=== PATIENT | female | born 1995 | race Caucasian/White ===

== ENCOUNTER 2020-08-31 12:42 | Emergency (ER) | payer OTHER ==
[2020-08-31 13:57] LABS: Urine Blood Negative (Negative); Urine Glucose Negative (Negative); Urine Protein Negative (Negative); Urine Specific Gravity 1.025 (1.005-1.030)
[2020-08-31 14:04] LABS: Absolute Lymphocytes (CBC) 2.2 K/uL (0.7-4.9); Basophils % 0.5 % (0-1.3); Hematocrit 38.4 % (36.0-45.0); Lymphocytes % 23.8 % (15.3-44.8); MPV 7.7 fL (7.6-11.3); RBC Red Blood Cell Count 4.35 M/uL (3.86-4.86)
[2020-08-31] MEDS ORDERED: Ringers Lactate 1,000 ML IV ONE (14:09)
[2020-08-31 14:13] LABS: BUN Blood Urea Nitrogen 7 mg/dL (7-18); Bicarbonate 27 mmol/L (21-32); Glucose Level 50 mg/dL (74-106); Potassium 3.7 mmol/L (3.5-5.1); Sodium Level 138 mmol/L (136-145)
[2020-08-31] MEDS ORDERED: D50W 25 GM/50 ML SYRINGE IV ONE (14:37)
[2020-08-31 14:56] LABS: Urine Specific Gravity/Preg 1.025 (1.005-1.030)
--- NOTE | 2020-08-31 15:56 | ER ---
Nurse's Notes [facility] Name: Gina Henry Age: 25 yrs Sex: Female : 1995 Arrival Date: 08/31/2020 Time: 12:51 Bed 20 Private MD: Diagnosis: Hypoglycemia, unspecified Presentation: 08/31 12:58 Chief complaint: Patient states: Headache, dizziness, lightheaded since this morning. ca1 17 weeks. Coronavirus screen: Client denies travel out of the [place] in the last 14 days. headache, Client presents with at least one sign or symptom that may indicate coronavirus-19. Standard/surgical mask placed on the client. Provider contacted for isolation considerations. Ebola Screen: Patient negative for fever greater than or equal to 101.5 degrees Fahrenheit, and additional compatible Ebola Virus Disease symptoms Patient denies exposure to infectious person. Patient denies travel to an Ebola-affected area in the 21 days before illness onset. No symptoms or risks identified at this time. Initial Sepsis Screen: Does the patient meet any 2 criteria? No. Patient's initial sepsis screen is negative. Does the patient have a suspected source of infection? No. Patient's initial sepsis screen is negative. Risk Assessment: Do you want to hurt yourself or someone else? Patient reports no desire to harm self or others. Onset of symptoms was August 31, 2020. 12:58 Method Of Arrival: Ambulatory ca1 12:58 Acuity: PHILL 3 ca1 Triage Assessment: 13:03 Headache History: The patient has had previous headaches and this one is similar to rb3 previous episodes. 13:03 Pain: Complains of pain in headache Pain currently is 5 out of 10 on a pain scale. Also rb3 complains of dizziness. 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 Flu vaccine is not up to date. - Social history:: Smoking status: Patient denies any tobacco usage or history of. Screenin:03 Abuse screen: Denies threats or abuse. Nutritional screening: No deficits noted. rb3 Tuberculosis screening: No symptoms or risk factors identified. Fall Risk None identified. Assessment: 13:03 General: Appears in no apparent distress. comfortable, Behavior is calm, cooperative, rb3 Denies fever. Neuro: Level of Consciousness is awake, alert, obeys commands, Oriented to person, place, time, situation, Reports dizziness, headache lightheaded. Cardiovascular: Patient's skin is warm and dry. Respiratory: Airway is patent Respiratory effort is even, unlabored, Respiratory pattern is regular, symmetrical. GI: No signs and/or symptoms were reported involving the gastrointestinal system. : No signs and/or symptoms were reported regarding the genitourinary system. 14:00 Reassessment: Patient appears in no apparent distress at this time. No changes from rb3 previously documented assessment. pt ambulated to the restroom without difficulty. 15:00 Reassessment: Patient appears in no apparent distress at this time. Patient and/or rb3 family updated on plan of care and expected duration. Pain level reassessed. Patient is alert, oriented x 3, equal unlabored respirations, skin warm/dry/pink. 15:16 Reassessment: BS is 68, after administering half an amp of Dextrose, and the pt eating rb3 a few bites of the her hospital tray of breakfast food. I gave the pt a ham and cheese sandwich, cranberry juice, and some apple sauce. No new orders received at this time. 16:00 Reassessment: Patient appears in no apparent distress at this time. Patient and/or rb3 family updated on plan of care and expected duration. Pain level reassessed. Patient is alert, oriented x 3, equal unlabored respirations, skin warm/dry/pink. Vital Signs: 12:58 BP 118 / 76; Pulse 65; Resp 16 S; Temp 98.6(O); Pulse Ox 100% on R/A; Weight 81.65 kg ca1 (R); Height 5 ft. 5 in. (165.10 cm) (R); Pain 4/10; 13:48 BP 128 / 72 Supine; Pulse 59; Resp 16; Pulse Ox 100% ; rb3 13:50 BP 129 / 70 Sitting; Pulse 60; Resp 17; Pulse Ox 100% ; rb3 13:52 BP 123 / 74 Standing; Pulse 61; Resp 16; Pulse Ox 98% ; rb3 14:19 BP 108 / 45; Pulse 59; Resp 16; Pulse Ox 100% on R/A; mh5 15:19 BP 122 / 78; Pulse 68; Resp 17; Pulse Ox 100% ; rb3 16:11 BP 108 / 76; Pulse 68; Resp 16; Pulse Ox 98% ; rb3 12:58 Body Mass Index 29.95 (81.65 kg, 165.10 cm) ca1 ED Course: 12:51 Patient arrived in ED. bp1 12:59 Triage completed. ca1 12:59 Arm band placed on right wrist. ca1 13:01 Nicko Saba PA is PHCP. jr8 13:01 Wai Castro MD is Attending Physician. jr8 13:03 Patient has correct armband on for positive identification. Bed in low position. Call rb3 light in reach. Side rails up X 1. Pulse ox on. NIBP on. Warm blanket given. 13:06 Rebecca Okeefe, RN is Primary Nurse. rb3 13:38 Missed attempt(s): 20 gauge in left antecubital area. Bleeding controlled, band aid rb3 applied, catheter tip intact. 13:42 Inserted saline lock: 22 gauge in right antecubital area, using aseptic technique. rb3 Blood collected. 14:18 Urine --Ancillary Sent. mh5 14:18 Urine --Ancillary (enter results) Sent. mh5 14:18 Initial lab(s) drawn, by ED staff, sent to lab. Urine collected: clean catch specimen, mh5 clear. 15:55 Vinnie Mccurdy MD is Referral Physician. jr8 16:12 No provider procedures requiring assistance completed. IV discontinued, intact, rb3 bleeding controlled, No redness/swelling at site. Pressure dressing applied. Administered Medications: 13:53 Drug: Ringers - Lactated Ringers Solution 1000 ml Route: IV; Rate: bolus; Site: right rb3 antecubital; 15:00 Follow up: IV Status: Completed infusion rb3 14:17 Drug: D50W 25 ml Route: IVP; Site: right antecubital; rb3 15:16 Follow up: Response: No adverse reaction; Blood sugar is elevated rb3 Point of Care Testing: Blood Glucose: 15:16 Blood Glucose: 68 mg/dL; rb3 15:16 Roszak notified. No new orders received at this time. Gave the pt. a ham and cheese rb3 sarndwich, cranberry juice, and applesauce to eat. Ranges: Output: 13:38 Urine: 1ml (Voided); Total: 1ml. rb3 14:00 Urine: 1ml (Voided); Total: 2ml. rb3 Outcome: 15:55 Discharge ordered by . ned 16:12 Discharged to home ambulatory, with significant other. rb3 16:12 Condition: stable 16:12 Discharge instructions given to patient, Instructed on discharge instructions, follow up and referral plans. Demonstrated understanding of instructions, follow-up care, Prescriptions given X none 16:13 Patient left the ED. rb3 Signatures: Nicko Saba PA PA jr8 Paulina Duong [facility] Fadumo Noonan, RN RN ca1 Mony Zepeda Rebecca, RN RN rb3 Corrections: (The following items were deleted from the chart) 13:00 12:59 Allergies: PENICILLINS; ca1 ca1 13:01 12:59 1, LMP 05/06/2020 ca1 ca1
--- NOTE | 2020-08-31 15:56 | EDPHYS ---
Physician Documentation [facility] Name: Gina Henry Age: 25 yrs Sex: Female : 1995 Arrival Date: 08/31/2020 Time: 12:51 Bed 20 Private MD: ED Physician Wai Castro HPI: 08/31 14:53 This 25 yrs old Female presents to ER via Ambulatory with complaints of Dizziness, jr8 +PREG 17 WEEKS. 14:53 Patient stated that she is approximately 17 weeks gestation. No care as of jr8 yet. Started to feel fatigued and dizzy. On/off nausea without vomiting or diarrhea. Stated that she has been working a lot and not drinking as much water as she needs to. Severity of symptoms: At their worst the symptoms were mild in the emergency department the symptoms are unchanged. The patient has not experienced similar symptoms in the past. The patient has not recently seen a physician. 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 Flu vaccine is not up to date. - Social history:: Smoking status: Patient denies any tobacco usage or history of. ROS: 14:53 Constitutional: Negative for fever, chills, and weight loss, Abdomen/GI: Negative for jr8 abdominal pain, nausea, vomiting, diarrhea, and constipation, : Negative for injury, bleeding, discharge, and swelling. 14:53 Constitutional: Positive for fatigue. 14:53 Neuro: Positive for dizziness, Negative for gait disturbance, headache, numbness, tingling, visual changes, weakness. 14:53 All other systems are negative. Exam: 14:53 Constitutional: This is a well developed, well nourished patient who is awake, alert, jr8 and in no acute distress. Eyes: Pupils equal round and reactive to light, extra-ocular motions intact. Lids and lashes normal. Conjunctiva and sclera are non-icteric and not injected. Cornea within normal limits. Periorbital areas with no swelling, redness, or edema. ENT: Nares patent. No nasal discharge, no septal abnormalities noted. Tympanic membranes are normal and external auditory canals are clear. Oropharynx with no redness, swelling, or masses, exudates, or evidence of obstruction, uvula midline. Mucous membranes moist. Neck: Trachea midline, no thyromegaly or masses palpated, and no cervical lymphadenopathy. Supple, full range of motion without nuchal rigidity, or vertebral point tenderness. No Meningismus. Cardiovascular: Regular rate and rhythm with a normal S1 and S2. No gallops, murmurs, or rubs. Normal PMI, no JVD. No pulse deficits. Respiratory: Lungs have equal breath sounds bilaterally, clear to auscultation and percussion. No rales, rhonchi or wheezes noted. No increased work of breathing, no retractions or nasal flaring. Abdomen/GI: Soft, non-tender, with normal bowel sounds. No distension or tympany. No guarding or rebound. No evidence of tenderness throughout. Back: No spinal tenderness. No costovertebral tenderness. Full range of motion. Skin: Warm, dry with normal turgor. Normal color with no rashes, no lesions, and no evidence of cellulitis. MS/ Extremity: Pulses equal, no cyanosis. Neurovascular intact. Full, normal range of motion. Neuro: Awake and alert, GCS 15, oriented to person, place, time, and situation. Cranial nerves II-XII grossly intact. Motor strength 5/5 in all extremities. Sensory grossly intact. Cerebellar exam normal. Normal gait. Vital Signs: 12:58 BP 118 / 76; Pulse 65; Resp 16 S; Temp 98.6(O); Pulse Ox 100% on R/A; Weight 81.65 kg ca1 (R); Height 5 ft. 5 in. (165.10 cm) (R); Pain 4/10; 13:48 BP 128 / 72 Supine; Pulse 59; Resp 16; Pulse Ox 100% ; rb3 13:50 BP 129 / 70 Sitting; Pulse 60; Resp 17; Pulse Ox 100% ; rb3 13:52 BP 123 / 74 Standing; Pulse 61; Resp 16; Pulse Ox 98% ; rb3 14:19 BP 108 / 45; Pulse 59; Resp 16; Pulse Ox 100% on R/A; mh5 15:19 BP 122 / 78; Pulse 68; Resp 17; Pulse Ox 100% ; rb3 16:11 BP 108 / 76; Pulse 68; Resp 16; Pulse Ox 98% ; rb3 12:58 Body Mass Index 29.95 (81.65 kg, 165.10 cm) ca1 MDM: 13:02 Patient medically screened. jr8 15:53 Data reviewed: vital signs, nurses notes, lab test result(s), and as a result, I will jr8 discharge patient. Data interpreted: Pulse oximetry: on room air is 100 %. Interpretation: normal. Counseling: I had a detailed discussion with the patient and/or guardian regarding: the historical points, exam findings, and any diagnostic results supporting the discharge/admit diagnosis, lab results, the need for outpatient follow up, an OB/Gyne specialist, to return to the emergency department if symptoms worsen or persist or if there are any questions or concerns that arise at home. ED course: Patient feeling much better. Has had similar episodes in past even when not . Counseled her on the need to f/u and establish a relationship with an OB of her choice. That hypoglycemia in is not good for her or fetus. Patient understood and would reach out to one immediately. Also told her to go get a glucometer in the meantime which she agreed with as well. Knows to come back if worse . 08/31 13:21 Order name: CBC with Diff; Complete Time: 14:14 [facility] 08/31 13:21 Order name: Basic Metabolic Panel; Complete Time: 14:14 [facility] 08/31 13:56 Order name: Urine Dipstick-Ancillary; Complete Time: 14:01 [facility] 08/31 14:08 Order name: Urine --Ancillary (enter results) em1 08/31 14:09 Order name: Urine --Ancillary; Complete Time: 15:04 [facility] 08/31 15:34 Order name: Glucose, Ancillary Testing; Complete Time: 15:35 [facility] 08/31 13:21 Order name: IV; Complete Time: 13:56 [facility] 08/31 13:21 Order name: Urine Dipstick-Ancillary (obtain specimen); Complete Time: 13:55 [facility] 08/31 13:21 Order name: Urine Test (obtain specimen); Complete Time: 13:56 [facility] 08/31 13:22 Order name: Orthostatics; Complete Time: 13:55 [facility] 08/31 14:16 Order name: Diet Regular; Complete Time: 14:16 jr8 Administered Medications: 13:53 Drug: Ringers - Lactated Ringers Solution 1000 ml Route: IV; Rate: bolus; Site: right rb3 antecubital; 15:00 Follow up: IV Status: Completed infusion rb3 14:17 Drug: D50W 25 ml Route: IVP; Site: right antecubital; rb3 15:16 Follow up: Response: No adverse reaction; Blood sugar is elevated rb3 Point of Care Testing: Blood Glucose: 15:16 Blood Glucose: 68 mg/dL; rb3 15:16 Deborahzak notified. No new orders received at this time. Gave the pt. a ham and cheese rb3 sarndwich, cranberry juice, and applesauce to eat. Ranges: Critical Glucose Levels:Adult <50 mg/dl or >400 mg/dl <40 mg/dl or >180 mg/dl Disposition: 09/01 07:19 Co-signature as Attending Physician, Wai Castro MD I agree with the assessment and tw4 plan of care. Disposition Summary: 08/31/20 15:55 Discharge Ordered Location: Home jr8 Problem: new jr8 Symptoms: have improved jr8 Condition: Stable jr8 Diagnosis - Hypoglycemia, unspecified jr8 Followup: jr8 - With: Vinnie Mccurdy MD - When: 2 - 3 days - Reason: Recheck today's complaints, Continuance of care, Re-evaluation by your physician Discharge Instructions: - Discharge Summary Sheet jr8 - Hypoglycemia jr8 - Blood Glucose Monitoring, Adult jr8 Forms: - Medication Reconciliation Form jr8 - Thank You Letter jr8 - Antibiotic Education jr8 - Prescription Opioid Use jr8 Signatures: Dispatcher [employer] EDMS Nicko Saba PA PA jr8 Wai Castro MD MD tw4 Fadumo Noonan RN RN ca1 Rebecca Okeefe RN RN rb3 Corrections: (The following items were deleted from the chart) 08/31 13:00 12:59 Allergies: PENICILLINS; ca1 ca1
[2020-08-31 16:23] VITALS: TEMP 98.6
[2020-08-31 16:31] VITALS: BP 108/76; O2SAT 98
== END 2020-08-31 16:13 | disposition home or self-care (01) ==
LOC: ER 12:42
DX: O99.282 Endocrine, nutritional and metabolic diseases complicating pregnancy, second trimester (principal); E16.2 Hypoglycemia, unspecified; Z3A.17 17 weeks gestation of pregnancy; Z88.4 Allergy status to anesthetic agent
CPT/HCPCS: 96365; 85025; 80048; 36415; 81025; 82947 ×2; 81003; 96375; 99284; J7120

== ENCOUNTER 2020-10-12 16:50 | Emergency (ER) | payer OTHER ==
--- NOTE | 2020-10-12 19:10 | RAD REPORT ---
EXAM DESCRIPTION: US - Abdomen Exam Limited - 10/12/2020 6:46 pm CLINICAL HISTORY: Abdominal pain. COMPARISON: None. FINDINGS: Limited examination was performed to assess for ascites. No ascites is visualized. . IMPRESSION: No ascites is visualized. This does not exclude an intraabdominal injury
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
[2020-10-12 20:58] VITALS: TEMP 98.1; O2SAT 100
[2020-10-12 20:59] VITALS: BP 117/69
== END 2020-10-12 20:53 | disposition home or self-care (01) ==
LOC: ER 16:50
DX: O26.892 Other specified pregnancy related conditions, second trimester (principal); V49.40XA Driver injured in collision with unspecified motor vehicles in traffic accident, initial encounter; Z88.4 Allergy status to anesthetic agent; Z3A.23 23 weeks gestation of pregnancy
CPT/HCPCS: 76705; 76815; 99283

== ENCOUNTER 2023-12-13 11:31 | Emergency (ER) | payer OTHER ==
--- OUTSIDE RECORDS SUMMARY | 2023-12-13 11:35 | XMS REPORT | Continuity of Care Document ---
Author Name Unknown Address [address] [facility] [address] [place] [address] [facility] Address [address] [place] [address] Care Team Providers Care Zoo Veterinarian Name Role Phone Luz Macias MD Primary Care Physician + JUANITA BROUSSARD Attending Clinician Unavailable THERESA NDIAYE Attending Clinician THERESA Guzmán Attending Clinician LUZ Rivera Attending Clinician Unavailable Theresa Ndiaye MD Attending Clinician + [phone] Doctor Unassigned, [place] Attending Clinician U Luz Stock MD Attending Clinician + 2, [facility] Attending Clinician Unavailable Gina Nelson Attending Clinician + Luz Macias MD Attending Clinician + RODOLFO HODGES Attending Clinician Unavailable CARMEN GUERRERO Attending Clinician CARMEN Gonzalez Attending Clinician Unavailtre holland Doctor Unassigned, [place] Attending Clinician U cristiano 2, [facility] Attending Clinician Unavailable GINA GALE Attending Clinician Unavailable Maria Eugenia Nelson LMSW Attending Clinician Rodolfo Whitehead MD Attending Clinician [phone] Edilson BOAT WASHER, Florencia L Attending Clinician Cindy HART Gina Sue Attending Clinician Unavailab le Lab, Ang - Db Attending Clinician Unavailable Juanita Broussard MD Attending Clinician [phone] Lexus ALFREDO Attending Clinician Unavailable Lexus Patel Attending Clinician [phone] Nurse, [facility] Attending Clinician Un available Yair Pedro MD Attending Clinician [phone] Julienne Perla DO Attending Clinician [phone] JUANITA BROUSSARD Admitting Clinician Unavailable Lexus ALFREDO Admitting Clinician Unavailable Juanita Broussard MD Admitting Clinician [phone] Payers Payer Name Policy Type Policy Number Effective Date Expirati on Date Source [facility] [id number] 2021 00:00:00 Problems Condition Name Condition Details Condition Category Status Onset Date Resolution Date Last Treatment Date Treating Clinician Comments Source Sexual behavior with high risk of exposure to communicab le disease Sexual behavior with high risk of exposure to communicab le disease Disease Active 10-19 00:00: 00 [facility] Other iron deficiency anemia Other iron deficiency anemia Disease Active 10-19 00:00: 00 [facility] Recurrent genital HSV (herpes simplex virus) infection Recurrent genital HSV (herpes simplex virus) infection Disease Active 2022-02 00:00: 00 [facility] Financial difficulty Financial difficulty Disease Active 2022-02 00:00: 00 [facility] Does not have health insurance Does not have health insurance Disease Active 2022-02 00:00: 00 [facility] Other social stressor Other social stressor Disease Active 09-29 00:00: 00 [facility] Other social stressor Other social stressor Disease Active 09-29 00:00: 00 [facility] Primary insomnia Primary insomnia Disease Active 09-29 00:00: 00 [facility] Vaginal discharge Vaginal discharge Disease Active - 00:00: 00 [facility] Possible exposure to STD Possible exposure to STD Disease Active 5- 00:00: 00 [facility] Essential hypertensi on Essential hypertensi on Disease Active 8-12 00:00: 00 [facility] BMI 40.0-44.9, adult BMI 40.0-44.9, adult Disease Active 8-12 00:00: 00 [facility] Binge-eati ng disorder, extreme Binge-eati ng disorder, extreme Disease Active 8-12 00:00: 00 [facility] 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 Disease Active 8-12 00:00: 00 [facility] Anxiety Anxiety Disease Active 8 00:00: 00 [facility] Screening examinatio n for venereal disease Screening examinatio n for venereal disease Disease Active 8- 00:00: 00 [facility] PTSD (post-trau matic stress disorder) PTSD (post-trau matic stress disorder) Disease Active 812 00:00: 00 [facility] Marijuana use, episodic Marijuana use, episodic Disease Active 812 00:00: 00 [facility] Screening for viral disease Screening for viral disease Disease Active 812 00:00: 00 [facility] Obesity (BMI 30-39.9) Obesity (BMI 30-39.9) Disease Active 2020-02 2- 00:00: 00 [facility] Positive urine drug screen Positive urine drug screen Disease Active 2020-02 2- 00:00: 00 [facility] Term Term Disease Resolve d 2020-02 2- 00:00: 00 2022-08-28 00:00:00 2022-08-28 14:25:57 [facility] Gestationa l hypertensi on, third trimester Gestationa l hypertensi on, third trimester Disease Resolve d 2020-02 2-26 00:00: 00 2022-08-28 00:00:00 2022-08-28 14:26:00 [facility] Single liveborn, born in hospital, delivered by vaginal delivery Single liveborn, born in hospital, delivered by vaginal delivery Disease Resolve d 2020-02 2-27 00:00: 00 2021-03-21 00:00:00 2021-03-21 11:36:26 [facility] Uterine contractio ns Uterine contractio ns Disease Resolve d 2020-02 2- 00:00: 00 2021-03-21 00:00:00 2021-03-21 11:36:26 [facility] Insufficie nt care in third trimester Insufficie nt care in third trimester Disease Resolve d 2020-02 2- 00:00: 00 2021-03-21 00:00:00 2021-03-21 11:36:26 [facility] Pre-eclamp annette in third trimester Pre-eclamp annette in third trimester Disease Resolve d 2020-02 2- 00:00: 00 2021-03-21 00:00:00 2021-03-21 11:36:26 [facility] Allergies, Adverse Reactions, Alerts Allergy Name Allergy Type Status Severity Reaction(s) Onset Date Inactive Date Treating Clinician Comments Source NO KNOWN ALLERGIE S Drug Class Active [facility] Social History Social Habit Start Date Stop Date Quantity Comments Source ASSERTION 2023-10-28 00:00:00 [facility] History SDOH Alcohol Frequency [facility] History SDOH Alcohol Std Drinks [facility] History SDOH Alcohol Binge [facility] History of tobacco use Current smoker [facility] Gender identity [facility] Alcoholic beverage intake 2023-12-02 00:00:00 2023-12-02 00:00:00 Current drinker of alcohol (finding) [facility] History of Social function 2023-10-20 00:00:00 2023-10-20 00:00:00 [facility] Alcohol intake 2023-03-26 00:00:00 2023-03-26 00:00:00 Current drinker of alcohol (finding) [facility] Exposure to SARS-CoV-2 (event) 2022-05-31 00:00:00 2022-06-10 10:02:00 Not sure [facility] Tobacco use and exposure 2021-10-29 00:00:00 2021-10-29 00:00:00 Smokeless tobacco non-user [facility] Alcohol Comment 2021-03-21 00:00:00 2021-03-21 00:00:00 wine [facility] Sex assigned at 1995 00:00:00 1995 00:00:00 [facility] Smoking Status Start Date Stop Date Source Ex-smoker 2021-10-29 00:00:00 2021-10-29 00:00:00 [facility] Medications Ordered Medication Name Filled Medication Name Start Date Stop Date Current Medication? Ordering Clinician Indication Dosage Frequency Signature (SIG) Comments Components Source PNV no.95/jamie us fum/folic ac ( ORAL) 2023-02 08:26: 32 Yes Take by mouth. [facility] ondansetron (ZOFRAN) 4 mg tablet 2023-02 00:00: 00 Yes [id number] 4mg Take 1 tablet by mouth every 8 (eight) hours as needed for Nausea and Vomiting (N/V). [facility] labetaloL 100 mg tablet 11-15 00:00: 00 Yes [id number] 100mg Take 1 tablet by mouth every 12 (twelve) hours. [facility] venlafaxine XR 37.5 mg 24 hr capsule 11-11 00:00: 00 Yes [id number] 37.5mg TAKE 1 CAPSULE BY MOUTH DAILY WITH BREAKFAST. [facility] BUPROPION SR 150 mg SR tablet 11-11 00:00: 00 Yes [id number] 150mg TAKE 1 TABLET BY MOUTH IN THE MORNING AND IN THE EVENING [facility] metformin ER 500 mg 24 hr tablet 10-19 00:00: 00 Yes [id number] 500mg Take 1 tablet by mouth daily with breakfast. [facility] ferrous sulfate 325 mg (65 mg iron) tablet 10-19 00:00: 00 Yes [id number] 325mg Take 1 tablet by mouth in the morning and 1 tablet in the evening. [facility] traZODone 100 mg tablet 10-19 00:00: 00 12-01 00:00 :00 No [id number] 100mg Take 1 tablet by mouth at bedtime. [facility] buPROPion SR (WELLBUTRIN SR) 150 mg SR tablet 10-19 00:00: 00 11-11 00:00 :00 No [id number] 150mg Take 1 tablet by mouth in the morning and 1 tablet in the evening. [facility] venlafaxine XR 37.5 mg 24 hr capsule 10-19 00:00: 00 11-11 00:00 :00 No [id number] 37.5mg Take 1 capsule by mouth daily with breakfast. [facility] VALACYCLOVI R 1 gram tablet 09-05 00:00: 00 Yes [id number] 1g TAKE 1 TABLET BY MOUTH EVERY DAY IN THE MORNING [facility] BUPROPION 75 mg tablet 07-15 00:00: 00 10-19 00:00 :00 No [id number] TAKE 1 TABLET BY MOUTH IN THE MORNING AT NOON AND IN THE EVENING [facility] metformin ER 500 mg 24 hr tablet 07-12 00:00: 00 10-19 00:00 :00 No 500mg Take 1 tablet by mouth daily with breakfast. [facility] buPROPion 75 mg tablet 30 00:00: 00 07-15 00:00 :00 No [id number] 75mg Take 1 tablet by mouth in the morning and 1 tablet at noon and 1 tablet in the evening. [facility] valACYclovi r (VALTREX) 1 gram tablet 03-26 00:00: 00 09-05 00:00 :00 No [id number] 1g Take 1 tablet by mouth in the morning. [facility] metformin ER 500 mg 24 hr tablet 2- 00:00: 00 07-12 00:00 :00 No [id number] 500mg Take 1 tablet by mouth daily with breakfast. [facility] traZODone 100 mg tablet 2022-02- 00:00: 00 10-19 00:00 :00 No [id number] 100mg Take 1 tablet by mouth at bedtime. [facility] buPROPion 75 mg tablet 2022-02 00:00: 00 06-20 00:00 :00 No [id number] 75mg Take 1 tablet by mouth in the morning and 1 tablet at noon and 1 tablet in the evening. [facility] valACYclovi r (VALTREX) 1 gram tablet 2022-02 00:00: 00 03-26 00:00 :00 No [id number] 1g Take 1 tablet by mouth in the morning. [facility] metformin ER 500 mg 24 hr tablet 2022-02 00:00: 00 03-26 00:00 :00 No [id number] 500mg Take 1 tablet by mouth daily with breakfast. [facility] buPROPion 75 mg tablet 09-29 00:00: 00 12-30 00:00 :00 No [id number] 75mg Take 1 tablet by mouth in the morning and 1 tablet at noon and 1 tablet in the evening. [facility] traZODone 50 mg tablet 09-29 00:00: 00 12-30 00:00 :00 No [id number] 50mg Take 1 tablet by mouth at bedtime. [facility] venlafaxine XR 37.5 mg 24 hr capsule 09-09 00:00: 00 09-29 00:00 :00 No [id number] 37.5mg Take 1 capsule by mouth in the morning. [facility] valACYclovi r (VALTREX) 1 gram tablet - 00:00: 00 12-08 00:00 :00 No [id number] 1g Take 1 tablet by mouth in the morning. [facility] valACYclovi r (VALTREX) 1 gram tablet 08-28 00:00: 08-31 00:00 :00 No [id number] 1g Take 1 tablet by mouth in the morning for 5 days. [facility] amLODIPine 10 mg tablet 03-31 00:00: 00 12-30 00:00 :00 No [id number] 5mg Take 0.5 tablets by mouth in the morning. [facility] venlafaxine XR 37.5 mg 24 hr capsule 03-31 00:00: 00 09-09 00:00 :00 No [id number] 37.5mg Take 1 capsule by mouth in the morning. [facility] venlafaxine XR 37.5 mg 24 hr capsule 2021-02 00:00: 00 03-31 00:00 :00 No [id number] 37.5mg Take 1 capsule by mouth in the morning. [facility] Supply Kit 10-29 00:00: 00 Yes [id number] I10 - Dispense blood pressure cuff (any brand), take BP at home BID [facility] Kit 10-29 00:00: 00 Yes [id number] I10 - Dispense blood pressure cuff (any brand), take BP at home BID [facility] VENLAFAXINE XR 37.5 mg 24 hr capsule 10-28 00:00: 00 01-26 00:00 :00 No [id number] TAKE 1 CAPSULE BY MOUTH EVERY DAY [facility] amLODIPine 10 mg tablet - 00:00: 00 03-31 00:00 :00 No [id number] 5mg Take 0.5 tablets by mouth in the morning. [facility] Kit - 00:00: 00 10-29 00:00 :00 No [id number] I10 - Dispense blood pressure cuff (any brand), take BP at home BID [facility] ibuprofen 600 mg tablet 5-24 00:00: 00 03-31 00:00 :00 No [id number] 600mg Take 1 tablet by mouth every 6 (six) hours as needed for Pain (scale 4-6). [facility] vitamin w/FA tablet 2020-02 00:00: 00 Yes [id number] 1{tbl} Take 1 tablet by mouth daily. [facility] vitamin w/FA tablet 2020-02 00:00: 00 10-19 00:00 :00 No [id number] 1{tbl} Take 1 tablet by mouth daily. [facility] ferrous sulfate 325 mg (65 mg iron) tablet 2020-02 00:00: 00 10-19 00:00 :00 No [id number] 325mg Take 1 tablet by mouth 2 (two) times daily. [facility] Immunizations Ordered Immunization Name Filled Immunization Name Date Status Comments Source HPV9 2023-10-20 00:00:00 Completed [facility] Pneumococcal 20 Conjugate, PCV20 (Prevnar 20) 2023-10-20 00:00:00 Completed HPV9 Unknown Completed [facility] Pneumococcal 20 Conjugate, PCV20 (Prevnar 20) Unknown Completed [facility] HPV9 Unknown Completed [facility] Pneumococcal 20 Conjugate, PCV20 (Prevnar 20) Unknown Completed [facility] HPV9 Unknown Completed [facility] Pneumococcal 20 Conjugate, PCV20 (Prevnar 20) Unknown Completed [facility] HPV9 Unknown Completed [facility] Pneumococcal 20 Conjugate, PCV20 (Prevnar 20) Unknown Completed [facility] Vital Signs Vital Name Observation Time Observation Value Comments S ource Systolic blood pressure 2023-12-02 13:23:00 131 mm[Hg] [facility] Diastolic blood pressure 2023-12-02 13:23:00 84 mm[Hg] [facility] Heart rate 2023-12-02 13:23:00 90 /min [facility] Respiratory rate 2023-12-02 13:23:00 18 /min [facility] Body height 2023-12-02 13:23:00 166.4 cm [facility] Body weight 2023-12-02 13:23:00 87.136 kg [facility] BMI 2023-12-02 13:23:00 31.48 kg/m2 [facility] Systolic blood pressure 2023-11-16 13:27:00 147 mm[Hg] [facility] Diastolic blood pressure 2023-11-16 13:27:00 102 mm[Hg] [facility] Heart rate 2023-11-16 13:27:00 108 /min [facility] Body temperature 2023-11-16 13:27:00 36.78 Judy [facility] Body weight 2023-11-16 13:27:00 85.911 kg [facility] BMI 2023-11-16 13:27:00 31.04 kg/m2 [facility] Systolic blood pressure 2023-10-20 18:00:00 114 mm[Hg] [facility] Diastolic blood pressure 2023-10-20 18:00:00 77 mm[Hg] [facility] Heart rate 2023-10-20 18:00:00 88 /min [facility] Body temperature 2023-10-20 18:00:00 36.33 Judy [facility] Respiratory rate 2023-10-20 18:00:00 18 /min [facility] Body height 2023-10-20 18:00:00 166.4 cm [facility] Body weight 2023-10-20 18:00:00 86.274 kg [facility] BMI 2023-10-20 18:00:00 31.17 kg/m2 [facility] Oxygen saturation in Arterial blood by Pulse oximetry 2023-10-20 18:00:00 99 /min [facility] Systolic blood pressure 2023-07-13 14:39:00 123 mm[Hg] [facility] Diastolic blood pressure 2023-07-13 14:39:00 73 mm[Hg] [facility] Heart rate 2023-07-13 14:39:00 76 /min [facility] Body temperature 2023-07-13 14:39:00 36.78 Judy [facility] Respiratory rate 2023-07-13 14:39:00 16 /min [facility] Body height 2023-07-13 14:39:00 165.1 cm [facility] Body weight 2023-07-13 14:39:00 78.064 kg [facility] BMI 2023-07-13 14:39:00 28.64 kg/m2 [facility] Systolic blood pressure 2023-03-26 16:29:00 123 mm[Hg] [facility] Diastolic blood pressure 2023-03-26 16:29:00 69 mm[Hg] [facility] Heart rate 2023-03-26 16:29:00 78 /min [facility] Body temperature 2023-03-26 16:29:00 36.44 Judy [facility] Respiratory rate 2023-03-26 16:29:00 18 /min [facility] Body height 2023-03-26 16:29:00 165.1 cm [facility] Body weight 2023-03-26 16:29:00 83.28 kg [facility] BMI 2023-03-26 16:29:00 30.55 kg/m2 [facility] Oxygen saturation in Arterial blood by Pulse oximetry 2023-03-26 16:29:00 100 /min [facility] Systolic blood pressure 2022-12-30 16:39:00 127 mm[Hg] [facility] Diastolic blood pressure 2022-12-30 16:39:00 83 mm[Hg] [facility] Heart rate 2022-12-30 16:39:00 72 /min [facility] Body temperature 2022-12-30 16:39:00 36.39 Judy [facility] Respiratory rate 2022-12-30 16:39:00 18 /min [facility] Body height 2022-12-30 16:39:00 165.7 cm [facility] Body weight 2022-12-30 16:39:00 86.274 kg [facility] BMI 2022-12-30 16:39:00 31.41 kg/m2 [facility] Oxygen saturation in Arterial blood by Pulse oximetry 2022-12-30 16:39:00 100 /min [facility] Systolic blood pressure 2022-12-08 17:58:00 122 mm[Hg] [facility] Diastolic blood pressure 2022-12-08 17:58:00 80 mm[Hg] [facility] Heart rate 2022-12-08 17:56:00 74 /min [facility] Respiratory rate 2022-12-08 17:56:00 18 /min [facility] Body height 2022-12-08 17:56:00 165.1 cm [facility] Body weight 2022-12-08 17:56:00 87.091 kg [facility] BMI 2022-12-08 17:56:00 31.95 kg/m2 [facility] Systolic blood pressure 2022-09-29 14:00:00 123 mm[Hg] [facility] Diastolic blood pressure 2022-09-29 14:00:00 85 mm[Hg] [facility] Heart rate 2022-09-29 13:59:00 79 /min [facility] Body temperature 2022-09-29 13:59:00 36.28 Judy [facility] Body height 2022-09-29 13:59:00 165.1 cm [facility] Body weight 2022-09-29 13:59:00 89.812 kg [facility] BMI 2022-09-29 13:59:00 32.95 kg/m2 [facility] Oxygen saturation in Arterial blood by Pulse oximetry 2022-09-29 13:59:00 99 /min [facility] Systolic blood pressure 2022-08-28 19:22:00 133 mm[Hg] [facility] Diastolic blood pressure 2022-08-28 19:22:00 82 mm[Hg] [facility] Heart rate 2022-08-28 19:22:00 105 /min [facility] Respiratory rate 2022-08-28 19:22:00 18 /min [facility] Body height 2022-08-28 19:22:00 166.4 cm [facility] Body weight 2022-08-28 19:22:00 92.534 kg [facility] BMI 2022-08-28 19:22:00 33.43 kg/m2 [facility] Systolic blood pressure 2022-06-10 15:57:00 134 mm[Hg] [place] [facility] Diastolic blood pressure 2022-06-10 15:57:00 78 mm[Hg] [facility] Heart rate 2022-06-10 15:57:00 76 /min [facility] Res[facility] rate 2022-06-10 15:57:00 18 /min [facility] Body height 2022-06-10 15:57:00 166.4 cm [facility] Body weight 2022-06-10 15:57:00 94.802 kg [facility] BMI 2022-06-10 15:57:00 34.25 kg/m2 [facility] Systolic blood pressure 2022-04-29 22:47:00 134 mm[Hg] [facility] Diastolic blood pressure 2022-04-29 22:47:00 89 mm[Hg] [facility] Heart rate 2022-04-29 22:47:00 85 /min [facility] Respiratory rate 2022-04-29 22:47:00 18 /min [facility] Body height 2022-04-29 22:47:00 165.1 cm [facility] Body weight 2022-04-29 22:47:00 93.895 kg [facility] BMI 2022-04-29 22:47:00 34.45 kg/m2 [facility] Systolic blood pressure 2022-03-31 19:54:00 125 mm[Hg] [facility] Diastolic blood pressure 2022-03-31 19:54:00 80 mm[Hg] [facility] Heart rate 2022-03-31 19:51:00 68 /min [facility] Body temperature 2022-03-31 19:51:00 35.83 Judy [facility] Respiratory rate 2022-03-31 19:51:00 18 /min [facility] Body height 2022-03-31 19:51:00 166.4 cm [facility] Body weight 2022-03-31 19:51:00 97.297 kg [facility] BMI 2022-03-31 19:51:00 35.15 kg/m2 [facility] Oxygen saturation in Arterial blood by Pulse oximetry 2022-03-31 19:51:00 100 /min [facility] Systolic blood pressure 2021-10-29 14:04:00 130 mm[Hg] [facility] Diastolic blood pressure 2021-10-29 14:04:00 75 mm[Hg] [facility] Heart rate 2021-10-29 14:04:00 74 [facility] Body temperature 2021-10-29 14:04:00 36.33 Judy [facility] Respiratory rate 2021-10-29 14:04:00 17 /min [facility] Body height 2021-10-29 14:04:00 165.1 cm [facility] Body weight 2021-10-29 14:04:00 107.23 kg [facility] BMI 2021-10-29 14:04:00 39.34 kg/m2 [facility] Oxygen saturation in Arterial blood by Pulse oximetry 2021-10-29 14:04:00 99 /min [facility] Procedures Procedure Date / Time Performed Performing Clinician Source US OB TRANSVAGINAL 2023-12-02 13:52:50 Cuca Ndiaye [facility] POCT TEST 2023-11-16 00:00:00 Theresa Ndiaye [facility] PNEUMOCOCCAL 20 CONJUGATE (PREVNAR 20) VACCINE 2023-10-20 18:36:45 Luz Macias [facility] GARDASIL 9 (HPV 9V) VACCINE 2023-10-20 18:35:30 Luz Macias [facility] FREE T4 2023-03-26 16:55:00 Gina Gale [facility] THYROID STIMULATING HORMONE 2023-03-26 16:55:00 [place] [facility] COMP. METABOLIC PANEL (05013) 2023-03-26 16:55:00 [place] [facility] LIPID PANEL (69469)(TOTAL CHOLESTEROL, TRIGLYCERIDES, HDL) 2023-03-26 16:55:00 [place] [facility] CBC WITH DIFF 2023-03-26 16:55:00 [facility] GLYCOSYLATED HEMOGLOBIN (A1C) 2023-03-26 16:55:00 [place] [facility] HCV ANTIBODY 2023-03-26 16:55:00 [facility] HIV 1/2 AG-AB WITH REFLEX 2023-03-26 16:55:00 [place] [facility] HSV 1&2, VZV NAAT 2022-08-28 19:22:00 Rodolfo Hodges [facility] HSV 1 AND 2 GLYCOPROTEIN G IGG 2022-06-10 20:03:00 Yolanda [facility] ADC OR BIB ONLY - RPR 2022-06-10 20:03:00 Trijaqui [facility] HIV 1/2 AG-AB WITH REFLEX 2022-06-10 20:03:00 Yolanda [facility] GC & CHLAMYDIA AMPLIFIED ASSAY 2022-06-10 17:03:00 Dick [facility] TRICHOMONAS AMPLIFIED ASSAY 2022-06-10 17:03:00 Yolanda [facility] ASSIGNMENT OF BENEFITS 2022-03-31 19:10:46 Docto r Unassigned, [place] [facility] FREE T4 2021-10-29 14:51:00 Luz Macias [facility] THYROID STIMULATING HORMONE 2021-10-29 14:51:00 Luz Macias [facility] COMP. METABOLIC PANEL (02866) 2021-10-29 14:51:00 Luz Macias [facility] LIPID PANEL (16918)(TOTAL CHOLESTEROL, TRIGLYCERIDES, HDL) 2021-10-29 14:51:00 Luz Macias [facility] CBC WITH DIFF 2021-10-29 14:51:00 Luz Macias [facility] GLYCOSYLATED HEMOGLOBIN (A1C) 2021-10-29 14:51:00 Luz Macias [facility] HCV ANTIBODY 2021-10-29 14:51:00 Colleen [facility] FREE T3 2021-10-29 14:51:00 Colleen [facility] Encounters Start Date/Time End Date/Time Encounter Type Admission Type Attending [facility] Care Department Encounter ID Source 2021-02-16 01:10:00 Inpatient X JUANITA BROUSSARD [facility] JACINDA [id number] [facility] 2023-12-30 08:45:00 2023-12-30 08:45:00 Outpatient R KIM-CHAPIS S, THERESA KIM-CHAPIS S, THERESA [facility] [id number] [facility] 2023-12-08 00:00:00 2023-12-08 09:04:54 Refill Kim-Chapis s, Theresa [facility] 1.2840.114 350.1.13.10 4.2.7.2.686 [id number] 134 [id number] [facility] 2023-10-29 00:00:00 2023-12-04 18:24:04 Patient Secure Msg Doctor Unassigned, [place] Doctor Unassigned, [place] [facility] (KAREN) 1.20.114 350.1.13.10 4.2.7.2.686 [id number] [facility] 2023-10-29 00:00:00 2023-12-04 18:23:12 Patient Secure Msg Doctor Unassigned, [place] Doctor Unassigned, [place] [facility] (KAREN) 1.2840.114 350.1.13.10 4.2.7.2.686 [id number] [facility] 2023-12-02 08:15:00 2023-12-02 08:51:58 Outpatient R KIM-CHAPIS S, THERESA KIM-CHAPIS S, THERESA [facility] [id number] [facility] 2023-12-02 08:15:00 2023-12-02 08:51:58 [facility] 1.2.840.114 350.1.13.10 4.2.7.2.686 [id number] [facility] 2023-11-16 08:15:00 2023-11-16 08:45:25 Outpatient R KIM-CHAPIS S, THERESA KIM-CHAPIS S, THERESA [facility] [id number] [facility] 2023-11-16 08:15:00 2023-11-16 08:45:25 [facility] 1.2.840.114 350.1.13.10 4.2.7.2.686 [id number] [facility] 2023-11-12 00:00:00 2023-11-12 21:36:09 Refill Luz Macias [facility] 1.2.840.114 350.1.13.10 4.2.7.2.686 [id number] 044 [id number] [facility] 2023-10-21 00:00:00 2023-10-21 12:25:59 Patient Secure Msg Luz Macias [facility] 1.2.840.114 350.1.13.10 4.2.7.2.686 [id number] [facility] 2023-10-20 14:15:00 2023-10-20 14:30:00 Parent Coach Visit 2, Adc Lab Luz Macias 2, Adc Lab [facility] 1.2.840.114 350.1.13.10 4.2.7.2.686 [id number] [facility] 2023-10-20 13:00:00 2023-10-20 13:43:08 Outpatient R LUZ MACIAS [facility] [id number] [facility] 2023-10-20 13:00:00 2023-10-20 13:43:08 [facility] 1.2.840.114 350.1.13.10 4.2.7.2.686 [id number] [facility] 2023-09-04 00:00:00 2023-09-06 12:02:55 Gina Hidalgo [facility] 1.2.840.114 350.1.13.10 4.2.7.2.686 [id number] [id number] [facility] 2023-07-15 00:00:00 2023-07-16 12:59:35 Refmelissa Luz Macias [facility] 1.2.840.114 350.1.13.10 4.2.7.2.686 [id number] [id number] [facility] 2023-07-13 09:30:00 2023-07-13 10:01:10 Outpatient R THERESA KNOX MARISOL [facility] [id number] [facility] 2023-07-13 09:30:00 2023-07-13 10:01:10 Office Visit Theresa Knox [facility] 1.2.840.114 350.1.13.10 4.2.7.2.686 [id number] [facility] 2023-07-01 11:30:00 2023-07-01 11:30:00 Outpatient R KIM-CHAPIS S, THERESA KIM-CHAPIS S, THERESA [facility] [id number] [facility] 2023-06-21 00:00:00 2023-06-21 00:00:00 Refill HusamrandiLuz summers [facility] 1..840.114 350.1.13.10 4.2.7.2.686 [id number] [facility] 2023-05-28 10:00:00 2023-05-28 10:00:00 Outpatient R RODOLFO HODGES [facility] [id number] [facility] 2023-05-07 13:00:00 2023-05-07 13:00:00 Outpatient R RODOLFO HODGES [facility] [id number] [facility] 2023-05-03 10:00:00 2023-05-03 10:00:00 Outpatient R CARMEN GUERRERO CHERYAL [facility] [id number] [facility] 2023-03-29 00:00:00 2023-03-29 00:00:00 Patient Secure Msg Doctor Unassigned, [place] [facility] 1..840.114 350.1.13.10 4.2.7.2.686 [id number] [facility] 2023-03-26 11:00:00 2023-03-26 11:28:33 Parent Coach Visit 2, Adc Lab Gina Gale [facility] 1..840.114 350.1.13.10 4.2.7.2.686 [id number] [facility] 2023-03-26 10:30:00 2023-03-26 10:43:12 Office Visit Gina Gale [facility] 1..840.114 350.1.13.10 4.2.7.2.686 [id number] [id number] [facility] 2023-03-26 10:30:00 2023-03-26 10:43:12 Outpatient R GINA GALE [facility] [id number] [facility] 2023-01-06 00:00:00 2023-01-06 00:00:00 Refill DickCarmen paz [facility] 1.20.114 350.1.13.10 4.2.7.2.686 [id number] [facility] 2022-12-30 10:40:00 2022-12-30 12:51:38 Outpatient R LUZ MACIAS [facility] [id number] [facility] 2022-12-30 10:40:00 2022-12-30 12:51:38 Office Visit Luz Mac[facility] 1.2840.114 350.1.13.10 4.2.7.2.686 [id number] [id number] [facility] 2022-12-30 00:00:00 2022-12-30 00:00:00 Patient Outreach Maria Eugenia Nelson Hipolito [facility] 1.2.840.114 350.1.13.10 4.2.7.2.686 [id number] [facility] 2022-12-08 13:00:00 2022-12-08 13:07:41 Outpatient R DICKALEXANDREA PAZANDRES GUERRERO [facility] [id number] [facility] 2022-12-08 13:00:00 2022-12-08 13:07:41 Office Visit DickCarmen paz [facility] 1.20.114 350.1.13.10 4.2.7.2.686 [id number] [facility] 2022-10-16 00:00:00 2022-10-16 00:00:00 Patient Secure Msg Doctor Unassigned, [place] [facility] 1.2.840.114 350.1.13.10 4.2.7.2.686 [id number] [facility] 2022-10-09 00:00:00 2022-10-09 00:00:00 Refill Rodolfo Hodges [facility] 1.2.840.114 350.1.13.10 4.2.7.2.686 [id number] [facility] 2022-09-30 00:00:00 2022-09-30 00:00:00 Patient Outreach Florencia Waggoner [facility] 1.2.840.114 350.1.13.10 4.2.7.2.686 [id number] [facility] 2022-09-29 10:00:00 2022-09-29 10:15:00 Parent Coach Visit 2, Adc Lab Luz Macias [facility] 1.2.840.114 350.1.13.10 4.2.7.2.686 [id number] [facility] 2022-09-29 09:00:00 2022-09-29 09:51:25 Outpatient R LUZ MACIAS [facility] [id number] [facility] 2022-09-29 09:00:00 2022-09-29 09:51:25 Office Visit Luz Macias [facility] 1.2.840.114 350.1.13.10 4.2.7.2.686 [id number] [id number] [facility] 2022-09-09 00:00:00 2022-09-09 00:00:00 Refill Luz Macias [facility] 1.2.840.114 350.1.13.10 4.2.7.2.686 [id number] [facility] 2022-08-31 00:00:00 2022-08-31 00:00:00 Telephone HodgesRodolfo [facility] KAY ELIAS [facility] 1.2.840.114 350.1.13.10 4.2.7.2.686 [id number] 134 [id number] [facility] 2022-08-28 14:00:00 2022-08-28 14:30:00 Office Visit HodgesRodolfo Will [facility] 1.2.840.114 350.1.13.10 4.2.7.2.686 [id number] [facility] 2022-08-28 14:00:00 2022-08-28 14:00:00 Outpatient R RODOLFO HODGES [facility] [id number] [facility] 2022-08-27 00:00:00 2022-08-27 00:00:00 Patient Secure Msg [facility] 1.2.840.114 350.1.13.10 4.2.7.2.686 [id number] [facility] 2022-06-15 00:00:00 2022-06-15 00:00:00 Telephone Trijaqui [facility] 1.2.840.114 350.1.13.10 4.2.7.2.686 [id number] 134 [id number] [facility] 2022-06-11 00:00:00 2022-06-11 00:00:00 [facility] 1.2.840.114 350.1.13.10 4.2.7.2.686 [id number] 134 [id number] [facility] 2022-06-11 00:00:00 2022-06-11 00:00:00 Patient Secure Gina Delcid [facility] 1.84.114 350.1.13.10 4.2.7.2.686 [id number] [facility] 2022-06-10 15:00:00 2022-06-10 15:25:33 Parent Coach Visit Lab, [facility] 1.84.114 350.1.13.10 4.2.7.2.686 [id number] [facility] 2022-06-10 11:00:00 2022-06-10 11:16:44 Outpatient R YOLANDAALEXANDREAANDRES [facility] [id number] [facility] 2022-06-10 11:00:00 2022-06-10 11:16:44 [facility] 1.84.114 350.1.13.10 4.2.7.2.686 [id number] [facility] 2022-05-28 11:30:00 2022-05-28 11:30:00 Outpatient R [facility] [id number] [facility] 2022-04-29 16:30:00 2022-04-29 16:59:12 Outpatient R [facility]AN[facility]ALEX[facility]ANDRES [facility] [id number] [facility] 2022-04-29 16:30:00 2022-04-29 16:59:12 [facility] 1.284.114 350.1.13.10 4.2.7.2.686 [id number] [facility] 2022-04-22 10:00:00 2022-04-22 10:00:00 Outpatient R CARMEN GUERRERO CHERYAL [facility] [id number] [facility] 2022-04-14 10:45:00 2022-04-14 10:45:00 Outpatient R CARMEN GUERRERO CHERYAL [facility] [id number] [facility] 2022-03-31 13:20:00 2022-03-31 13:40:00 Office Visit Luz [facility] 1..840.114 350.1.13.10 4.2.7.2.686 [id number] [facility] 2022-03-31 13:20:00 2022-03-31 13:20:00 Outpatient R HUSAMCHUNLUZ REGALADO [facility] [id number] [facility] 2022-03-31 00:00:00 2022-03-31 00:00:00 Orders Only Doctor Unassigned, [place] [facility] 1..840.114 350.1.13.10 4.2.7.2.686 [id number] [facility] 2022-03-24 10:30:00 2022-03-24 10:30:00 Outpatient R LASHON [facility] [id number] [facility] 2022-03-24 10:30:00 2022-03-24 10:30:00 Outpatient R TRINYUM [facility] [id number] [facility] 2022-03-24 10:30:00 2022-03-24 10:30:00 Outpatient R ADDELANO [facility] [id number] [facility] 2022-02-05 00:00:00 2022-02-05 00:00:00 Refill Luz Mac[facility] 1..840.114 350.1.13.10 4.2.7.2.686 [id number] [facility] 2022-01-26 00:00:00 2022-01-26 00:00:00 Refill Luz Macias [facility] 1.2.840.114 350.1.13.10 4.2.7.2.686 [id number] [facility] 2021-10-29 10:15:00 2021-10-29 10:30:00 Parent Coach Visit 2, Adc Lab Husamchunluz mariaLuz [facility] 1.2.840.114 350.1.13.10 4.2.7.2.686 [id number] [facility] 2021-10-29 10:15:00 2021-10-29 10:15:00 Outpatient R LUZ MACIAS [facility] [id number] [facility] 2021-10-29 08:40:00 2021-10-29 10:05:12 Office Visit Luz Macias [facility] 1.2.840.114 350.1.13.10 4.2.7.2.686 [id number] [facility] 2021-10-29 08:40:00 2021-10-29 10:05:12 Outpatient R LUZ MACIAS [facility] [id number] [facility] 2021-10-25 00:00:00 2021-10-25 00:00:00 Refill Luz Macias [facility] 1.2.840.114 350.1.13.10 4.2.7.2.686 [id number] [facility] 2021-10-03 10:00:00 2021-10-03 11:15:13 Outpatient R LUZ MACIAS [facility] [id number] [facility] 2021-10-03 10:00:00 2021-10-03 11:15:13 Office Visit Luz Mac[facility] 1.2.840.114 350.1.13.10 4.2.7.2.686 [id number] [facility] 2021-10-03 10:00:00 2021-10-03 11:15:13 Outpatient R LUZ MACIAS [facility] [id number] [facility] 2021-08-27 11:11:55 2021-08-27 23:59:00 Outpatient R JUANITA BROUSSARD [facility] [id number] [facility] 2021-08-27 11:00:00 2021-08-27 23:59:00 Hospital Encounter Juanita Broussard [facility] 1.2.840.114 350.1.13.10 4.2.7.2.686 [id number] [facility] 2021-08-27 00:00:00 2021-08-27 00:00:00 Orders Only Doctor Unassigned, [place] [facility] 1..840.114 350.1.13.10 4.2.7.2.686 [id number] [facility] 2021-08-07 00:00:00 2021-08-07 00:00:00 Outpatient R LASHON [facility] [id number] [facility] 2021-07-25 09:00:00 2021-07-25 09:33:00 Outpatient R LASHON [facility] [id number] [facility] 2021-07-25 09:00:00 2021-07-25 09:33:00 Office Visit Juanita Broussard [facility] 1.2.840.114 350.1.13.10 4.2.7.2.686 [id number] 134 [id number] [facility] 2021-07-15 11:27:00 2021-07-15 16:33:00 Emergency X JUNI, K [facility] ERT [id number] [facility] 2021-07-15 11:27:00 2021-07-15 16:33:00 Emergency Lexus Alfredo [facility] 1.2.840.114 350.1.13.10 4.2.7.2.686 [id number] [facility] 2021-07-15 00:00:00 2021-07-15 00:00:00 Telephone Juanita Broussard [facility] 1.2.840.114 350.1.13.10 4.2.7.2.686 [id number] 134 [id number] [facility] 2021-07-04 15:00:00 2021-07-04 15:00:00 Outpatient R TRINYDELANOJUANITA [facility] [id number] [facility] 2021-06-16 10:00:00 2021-06-16 10:00:00 Outpatient R [facility] [id number] [facility] 2021-05-26 00:00:00 2021-05-26 00:00:00 Refill Juanita Broussard [facility] 1.2.840.114 350.1.13.10 4.2.7.2.686 [id number] 134 [id number] [facility] 2021-04-10 10:00:00 2021-04-10 10:00:00 Outpatient R LUZ MACIAS [facility] [id number] [facility] 2021-04-01 10:00:00 2021-04-01 10:00:00 Outpatient R [facility] [id number] [facility] 2021-03-27 10:00:00 2021-03-27 10:00:00 Outpatient R LUZ MACIAS [facility] [id number] [facility] 2021-03-21 11:15:00 2021-03-21 12:25:19 Outpatient R ADUMJUANITA [facility] [id number] [facility] 2021-03-21 11:15:00 2021-03-21 12:25:19 Routine Visit AdJuanita wick [facility] 1.2.840.114 350.1.13.10 4.2.7.2.686 [id number] 134 [id number] [facility] 2021-03-21 11:15:00 2021-03-21 12:25:19 Outpatient R ADUMJUANITA [facility] [id number] [facility] 2021-03-13 13:15:00 2021-03-13 13:15:00 Outpatient R ADUMJUANITA [facility] [id number] [facility] 2021-02-24 10:00:00 2021-02-24 10:15:00 Nurse Visit Nurse, [facility] Adum, Juanita [facility] 1.2.840.114 350.1.13.10 4.2.7.2.686 [id number] 134 [id number] [facility] 2021-02-24 10:00:00 2021-02-24 10:00:00 Outpatient R ADUMJUANITA [facility] [id number] [facility] 2021-02-24 00:00:00 2021-02-24 00:00:00 Orders Only Doctor Unassigned, [place] [facility] 1.2.840.114 350.1.13.10 4.2.7.2.686 [id number] [facility] 2021-02-16 01:10:00 2021-02-18 19:30:00 Inpatient X ADJUANITA WICK [facility] JACINDA [id number] [facility] 2021-02-16 01:10:00 2021-02-18 19:30:00 Hospital Encounter AdJuanita wick [facility] 1..840.114 350.1.13.10 4.2.7.2.686 [id number] [facility] 2021-02-16 10:00:00 2021-02-17 07:08:00 Anesthesia Event Yair Pedro [facility] 1.2.840.114 350.1.13.10 4.2.7.2.686 [id number] [facility] 2021-02-14 14:28:00 2021-02-14 15:48:00 Outpatient X JUANITA BROUSSARD [facility] JACINDA [id number] [facility] 2021-02-14 14:28:00 2021-02-14 15:48:00 Emergency Julienne Perla Vivian L [facility] 1.2.840.114 350.1.13.10 4.2.7.2.686 [id number] [facility] Results Test Description Test Time Test Comments Results Result Co mments Source [id number] 22:14:09* Test Item Value Reference Range Interpretation Comme [facility] HCV Ab (test code = 97026-5) Negative HCV Semi-Quantitative (test code = 84862-7) 0.01 [facility] Ag-Ab with [id number] 19:51:03* Test Item Value Reference Range Interpretation Comme [facility] HIV Semi-quantitative (test code = 05954-7) 0.07 Negative SHONA (test code = SHONA) Non-reactive for HIV-1 antigen and HIV-1/HIV-2 antibodies. ?No laboratory evidence of HIV infection. ?Repeat in 2-4 weeks if acute HIV infection is suspected. [facility] [id number] 19:41:44 * Test Item Value Reference Range Interpretation Comme [facility] TSH (test code = 9463205577) 0.66 0.45-4.70 Lab Interpretation (test cod e = 75266-7) Normal [facility] [id number] 19:41:44 * Test Item Value Reference Range Interpretation Comme [facility] TSH (test code = 2433032699) 0.66 0.45-4.70 Lab Interpretation (test cod e = 72472-7) Normal [facility] [id number] 19:27:39* Test Item Value Reference Range Interpretation Comme nts FREE T4 (test code = 6964879246) 1.05 0.78-2.20 Lab Interpretation (test cod e = 47338-8) Normal [facility] [id number] 19:27:39* Test Item Value Reference Range Interpretation Comme nts FREE T4 (test code = 5457549847) 1.05 0.78-2.20 Lab Interpretation (test cod e = 01271-7) Normal [facility] with [id number] 19:23:40* Test Item Value Reference Range Interpretation Comme nts WBC (test code = 6690-2) 7.88 4.30-11.10 RBC (test code = 789-8) 4.38 3.93-5.25 HGB (test code = 718-7) 13.9 g/dL 11.6-15.0 HCT (test code = 4544-3) 40.8 % 35.7-45.2 MCV (test code = 787-2) 93.2 fL 80.6-95.5 MCH (test code = 785-6) 31.7 pg 25.9-32.8 MCHC (test code = 786-4) 34.1 g/dL 31.6-35.1 RDW-SD (test code = 43266-7) 44.0 fL 39.0-49.9 RDW-CV (test code = 788-0) 12.8 % 12.0-15.5 PLT (test code = 777-3) 246 166-358 MPV (test code = 71623-1) 9.5 fL 9.5-12.9 NRBC/100 WBC (test code = 2899158592) 0.0 0.0-10.0 NRBC x10^3 (test code = 0073155771) See_Comment [Automated me ssage] The system which generated this result transmitted reference range: 10*3/?L. The reference range was not used to interpret this result as normal/abnormal. GRAN MAT (NEUT) % (test code = 770-8) 58.5 % IMM GRAN % (test code = 5652827235) 0.10 % LYMPH % (test code = 736-9) 33.2 % MONO % (test code = 5905-5) 4.8 % EOS % (test code = 713-8) 2.8 % BASO % (test code = 706-2) 0.6 % GRAN MAT x10^3(ANC) (test code = 3692479645) 4.60 10*3/uL 1.88-7.09 IMM GRAN x10^3 (test code = 9351384517) 0.00-0.06 LYMPH x10^3 (test code = 731-0) 2.62 10*3/uL 1.32-3.29 MONO x10^3 (test code = 742-7) 0.38 10*3/uL 0.33-0.92 EOS x10^3 (test code = 711-2) 0.22 10*3/uL 0.03-0.39 BASO x10^3 (test code = 704-7) 0.05 10*3/uL 0.01-0.07 [facility] with [id number] 19:23:40* Test Item Value Reference Range Interpretation Comme nts WBC (test code = 6690-2) 7.88 4.30-11.10 RBC (test code = 789-8) 4.38 3.93-5.25 HGB (test code = 718-7) 13.9 g/dL 11.6-15.0 HCT (test code = 4544-3) 40.8 % 35.7-45.2 MCV (test code = 787-2) 93.2 fL 80.6-95.5 MCH (test code = 785-6) 31.7 pg 25.9-32.8 MCHC (test code = 786-4) 34.1 g/dL 31.6-35.1 RDW-SD (test code = 94738-7) 44.0 fL 39.0-49.9 RDW-CV (test code = 788-0) 12.8 % 12.0-15.5 PLT (test code = 777-3) 246 166-358 MPV (test code = 90599-1) 9.5 fL 9.5-12.9 NRBC/100 WBC (test code = 8208296514) 0.0 0.0-10.0 NRBC x10^3 (test code = 3812277453) See_Comment [Automated me ssage] The system which generated this result transmitted reference range: 10*3/?L. The reference range was not used to interpret this result as normal/abnormal. GRAN MAT (NEUT) % (test code = 770-8) 58.5 % IMM GRAN % (test code = 9102637630) 0.10 % LYMPH % (test code = 736-9) 33.2 % MONO % (test code = 5905-5) 4.8 % EOS % (test code = 713-8) 2.8 % BASO % (test code = 706-2) 0.6 % GRAN MAT x10^3(ANC) (test code = 9942373340) 4.60 10*3/uL 1.88-7.09 IMM GRAN x10^3 (test code = 5297909525) 0.00-0.06 LYMPH x10^3 (test code = 731-0) 2.62 10*3/uL 1.32-3.29 MONO x10^3 (test code = 742-7) 0.38 10*3/uL 0.33-0.92 EOS x10^3 (test code = 711-2) 0.22 10*3/uL 0.03-0.39 BASO x10^3 (test code = 704-7) 0.05 10*3/uL 0.01-0.07 [facility] Branch[facility] (37083)(Total Cholesterol, Triglycerides, HDL)2023-03-26 19:10:38* Test Item Value Reference Range Interpretation Comme nts CHOL (test code = 2299368292) 130 mg/dL 120-200 HDL (test code = 4708740785) 51 mg/dL >=50 HDLC RATIO (test code = 6973702220) 2.5 <=4.5 TRIG (test code = 0246418079) 56 mg/dL 30-170 LDL CHOL (test code = 91141-6) 68 mg/dL <=160 VLDL (test code = 9139428468) 11 mg/dL 5-60 Lab Interpretation (test cod e = 39268-8) [facility]Total Cholesterol, Triglycerides, HDL)2023-03-26 19:10:38* Test Item Value Reference Range Interpretation Comme nts CHOL (test code = 3579965904) 130 mg/dL 120-200 HDL (test code = 0944864153) 51 mg/dL >=50 HDLC RATIO (test code = 6262276635) 2.5 <=4.5 TRIG (test code = 4213149162) 56 mg/dL 30-170 LDL CHOL (test code = 27900-0) 68 mg/dL <=160 VLDL (test code = 6621366881) 11 mg/dL 5-60 Lab Interpretation (test cod e = 84901-1) [facility] (50703)2023-03-26 19:10:18* Test Item Value Reference Range Interpretation Comme nts NA (test code = 8286988795) 139 mmol/L 135-145 K (test code = 3283885402) 3.9 mmol/L 3.5-5.0 CL (test code = 5844130691) 108 mmol/L 98-108 CO2 TOTAL (test code = 8533363987) 26 mmol/L 23-31 AGAP (test code = 9123598276) 5 2-16 BUN (test code = 5690180813) 13 mg/dL 7-23 GLUCOSE (test code = 5790744715) 79 mg/dL 70-110 CREATININE (test code = 6596590521) 0.83 mg/dL 0.50-1.04 TOTAL BILI (test code = 6014189285) 0.5 mg/dL 0.1-1.1 CALCIUM (test code = 9054712677) 9.3 mg/dL 8.6-10.6 T PROTEIN (test code = 3939383699) 7.4 g/dL 6.3-8.2 ALBUMIN (test code = 2672264650) 4.3 g/dL 3.5-5.0 ALK PHOS (test code = 3881915334) 73 U/L 34-122 ALTv (test code = 1742-6) 19 U/L 5-35 AST(SGOT) (test code = 1148624870) 25 U/L 13-40 eGFR (test code = 32233-8) 99.9 mL/min/1.73m2 CKD-EPI eGFR (20 21). Assuming creatinine has been stable day-to-day for at least three months, the eGFR indicates Category G1 (>= 90 mL/min/1.73 m2) [facility] (14708)2023-03-26 19:10:18* Test Item Value Reference Range Interpretation Comme nts NA (test code = 2125544957) 139 mmol/L 135-145 K (test code = 4799232207) 3.9 mmol/L 3.5-5.0 CL (test code = 8641721543) 108 mmol/L 98-108 CO2 TOTAL (test code = 2335391141) 26 mmol/L 23-31 AGAP (test code = 7023182112) 5 2-16 BUN (test code = 8977467365) 13 mg/dL 7-23 GLUCOSE (test code = 7575152840) 79 mg/dL 70-110 CREATININE (test code = 2774217873) 0.83 mg/dL 0.50-1.04 TOTAL BILI (test code = 6159829973) 0.5 mg/dL 0.1-1.1 CALCIUM (test code = 0184568440) 9.3 mg/dL 8.6-10.6 T PROTEIN (test code = 4609467753) 7.4 g/dL 6.3-8.2 ALBUMIN (test code = 0710979544) 4.3 g/dL 3.5-5.0 ALK PHOS (test code = 9387307472) 73 U/L 34-122 ALTv (test code = 1742-6) 19 U/L 5-35 AST(SGOT) (test code = 7900691968) 25 U/L 13-40 eGFR (test code = 44195-9) 99.9 mL/min/1.73m2 CKD-EPI eGFR (20 21). Assuming creatinine has been stable day-to-day for at least three months, the eGFR indicates Category G1 (>= 90 mL/min/1.73 m2) [facility]2023-03-26 18:17:25* Test Item Value Reference Range Interpretation Comme nts HGB A1C (test code = 4548-4) 4.9 % 4.0-5.7 SHONA (test code = SHONA) Reference RangesNormal: <5.7%Prediabetes: 5.7 - 6.4%Diabetes: > 6.5% Lab Interpretation (test code = 06352-4) Normal [facility]2023-03-26 18:17:25* Test Item Value Reference Range Interpretation Comme nts HGB A1C (test code = 4548-4) 4.9 % 4.0-5.7 SHONA (test code = SHONA) Reference RangesNormal: <5.7%Prediabetes: 5.7 - 6.4%Diabetes: > 6.5% Lab Interpretation (test code = 73539-6) [facility] AND 2 GLYCOPROTEIN G [id number] 18:31:26* Test Item Value Reference Range Interpretation Comme nts HSV I IgG (test code = 3126421047) Negative Negative HSV II IgG (test code = 3342705746) Positive Negative SHONA (test code = SHONA) Positive - IgG ant ibody to HSV 1 and/or HSV 2 detected.Negative - No HSV 1 and/or HSV 2 antibody detected.Equivocal - A second sample should be sent. [facility]2 AG-AB WITH [id number] 12:44:37* Test Item Value Reference Range Interpretation Comme nts HIV Semi-quantitative (test code = 84175-8) 0.08 Negative SHONA (test code = SHONA) Non-reactive for HIV-1 antigen and HIV-1/HIV-2 antibodies. ?No laboratory evidence of HIV infection. ?Repeat in 2-4 weeks if acute HIV infection is suspected. [facility] - [id number] 03:57:58* Test Item Value Reference Range Interpretation Comme nts RPR (Qualitative) (test code = 23279-6) Nonreactive Nonreactive Lab Interpretation (test cod e = 78623-4) Normal [facility] Notes Date/Time Note Provider Source 2023-11-12 09:31:16 Images from the original note were not included. Changes Requested Name from pharmacy: VENLAFAXINE HCL ER 37.5 MG CAP Will file in chart as: VENLAFAXINE XR 37.5 mg 24 hr capsule Sig: Take 1 capsule by mouth daily with breakfast. Disp: 90 capsule Refills: 2 Start: 11/12/2023 Class: eRX For: Mild recurrent major depression; Anxiety; Binge-eating disorder, extreme; PTSD (post-traumatic stress disorder) Last ordered: 3 weeks ago (10/20/2023) by Luz Macias MD Last refill: 10/20/2023 Rx #: [id number] Pharmacy comment: REQUEST FOR 90 DAYS PRESCRIPTION. DX Code Needed. Psychiatry: Antidepressants Rqgive6411/12/2023 08:32 AM Protocol Details Manual Review: Verify no changes in dose in the last 3 months Valid encounter within last 12 months This request has changes from the previous prescription. Name from pharmacy: BUPROPION HCL SR 150 MG TABLET Will file in chart as: BUPROPION SR 150 mg SR tablet Sig: TAKE 1 TABLET BY MOUTH IN THE MORNING AND IN THE EVENING Disp: 180 tablet (Pharmacy requested: 180 Each) Refills: 1 Start: 11/12/2023 Class: eRX For: Mild recurrent major depression; Anxiety; PTSD (post-traumatic stress disorder); Binge-eating disorder, extreme Last ordered: 3 weeks ago (10/20/2023) by Luz Macias MD Last refill: 10/20/2023 Rx #: [id number] Pharmacy comment: REQUEST FOR 90 DAYS PRESCRIPTION. DX Code Needed. Psychiatry: Antidepressants Dabmkc1611/12/2023 08:32 AM Protocol Details Manual Review: Verify no changes in dose in the last 3 months Valid encounter within last 12 months This request has changes from the previous prescription. To be filled at: [id number] - [place], [place] - [address] [place] [address] AT [facility] Norma Carmichael MA [facility] 2023-10-21 12:21:07 Call placed to pt to discuss lab results. Pt requesting a copy of HIV results to be sent to her via OneM[employer] as she was unable to view these results. Message sent. Siri Ramsey RN [facility] 2023-10-20 14:15:00 Images from the original note were not included. Venipuncture collection performed by clean technique on the left anticubitus. Total of 1 attempts were made. Slight pressure and a bandage/dressing were applied to the site(s). The patient experienced no complications. The following specimens were processed according to instructions and sent to [facility] laboratories per lab order on 10/20/2023: LT BLUE SST 1 RED LAV 2 PPT DK GREEN (LiHep) DK GREEN (SodH) LINARES DK BLUE (K2) DK BLUE (S) ACD Blood Culture NIPT/NTD [facility] 2023-09-06 12:01:31 Images from the original note were not included. Refill request refilled per ambulatory refill guidelines. Notes: Name from pharmacy: VALACYCLOVIR HCL 1 GRAM TABLET Will file in chart as: VALACYCLOVIR 1 gram tablet Sig: TAKE 1 TABLET BY MOUTH EVERY DAY IN THE MORNING Disp: 90 tablet Refills: 1 Start: 09/04/2023 Class: eRX For: Recurrent genital HSV (herpes simplex virus) infection Last ordered: 5 months ago (03/26/2023) by LAMIN Navarro Last refill: 08/07/2023 Rx #: [id number] Anti-Herpes Gvxbuq2809/06/2023 09:54 AM Protocol Details Valid encounter within last 12 months Herpes simplex virus (HSV) is on problem list To be filled at: [facility]/pharmacy #[id number] - [place], [address] Last Refilled: 08/07/23 Recent Visits Date Type Provider Dept 03/26/23 Office Visit Gina Gale FNP [facility] 12/30/22 Office Visit Luz Macias MD [facility] 09/29/22 Office Visit Luz Macias MD [facility] 03/31/22 Office Visit Luz Macias MD [facility] Showing recent visits within past 540 days with a meds authorizing provider and meeting all other requirements Future Appointments No visits were found meeting these conditions. Showing future appointments within next 150 days with a meds authorizing provider and meeting all other requirements Gina Duong MA [facility] 2023-07-15 13:53:14 Images from the original note were not included. Routed to provider for review. Unable to refill per ambulatory refill guidelines. Notes: Name from pharmacy: BUPROPION HCL 75 MG TABLET Will file in chart as: BUPROPION 75 mg tablet Sig: TAKE 1 TABLET BY MOUTH IN THE MORNING AT NOON AND IN THE EVENING Disp: 270 tablet Refills: 1 Start: 07/15/2023 Class: eRX For: Mild recurrent major depression, Anxiety, Other social stressor, Primary insomnia, PTSD (post-traumatic stress disorder) Last ordered: 3 weeks ago (06/22/2023) by Luz Macias MD Last refill: 06/22/2023 Rx #: [id number] Pharmacy comment: REQUEST FOR 90 DAYS PRESCRIPTION. DX Code Needed. Psychiatry: Antidepressants Jcwvtz8307/15/2023 09:33 AM Protocol Details Manual Review: Verify no changes in dose in the last 3 months Valid encounter within last 12 months This request has changes from the previous prescription. To be filled at: [facility]/pharmacy #[id number] - [facility] [address] [place] [address] AT [facility] Last Refilled: 06/22/23 Recent Visits Date Type Provider Dept 03/26/23 Office Visit Gina Gale FNP [facility] 12/30/22 Office Visit Luz Macias MD [facility] 09/29/22 Office Visit Luz Macias MD [facility] 03/31/22 Office Visit Luz Macias MD [facility] Showing recent visits within past 540 days with a meds authorizing provider and meeting all other requirements Future Appointments No visits were found meeting these conditions. Showing future appointments within next 150 days with a meds authorizing provider and meeting all other requirements Gina Duong MA [facility] 2023-06-22 12:54:58 Refill sent for 30 days only. Needs appointment prior to next refill request. [facility] 2023-06-22 09:42:29 Images from the original note were not included. Routed to provider for review. Unable to refill per ambulatory refill guidelines. Notes: buPROPion 75 mg tablet Sig: Take 1 tablet by mouth in the morning and 1 tablet at noon and 1 tablet in the evening. Disp: 270 tablet Refills: 1 Start: 06/21/2023 Class: eRX For: Mild recurrent major depression, Anxiety, Other social stressor, Primary insomnia, PTSD (post-traumatic stress disorder) Last ordered: 5 months ago (12/30/2022) by Luz Macias MD Psychiatry: Antidepressants Osjmee7006/21/2023 06:11 PM Protocol Details Manual Review: Verify no changes in dose in the last 3 months Valid encounter within last 12 months To be filled at: [facility]/pharmacy #[id number] Last Refilled: 12/30/22 Recent Visits Date Type Provider Dept 03/26/23 Office Visit Gina Gale FNP [facility] 12/30/22 Office Visit Luz Macias MD [facility] 09/29/22 Office Visit Luz Macias MD [facility] 03/31/22 Office Visit Luz Macias MD [facility] Showing recent visits within past 540 days with a meds authorizing provider and meeting all other requirements Future Appointments No visits were found meeting these conditions. Showing future appointments within next 150 days with a meds authorizing provider and meeting all other requirements Gina Duong MA [facility] 2023-03-26 11:00:00 Images from the original note were not included. Venipuncture collection performed by clean technique on the left anticubitus. Total of 1 attempts were made. Slight pressure and a bandage/dressing were applied to the site(s). The patient experienced no complications. The following specimens were processed according to instructions and sent to [facility] laboratories per lab order on 03/26/2023]: LT BLUE SST 3 RED 1 LAV 2 PPT DK GREEN (LiHep) DK GREEN (SodH) LINARES DK BLUE (K2) DK BLUE (S) ACD Blood Culture NIPT/NTD During the blood draw patient stated she was feeling sick, right after I completed the blood draw she stated she needed a trash can and proceeded to throw up. I made sure the patient was okay, grabbed her a bottle of water and had her wait for a few minutes before she left. 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 Patient verbalized understanding. Going to schedule appt. Catina Flores RN 03/19/2023 3:36 PM OYEE RELATIONS ADMINISTRATOR Catina Flores RN [facility] 2023-03-18 13:13:34 Spoke with patient, states that she has an HSV outbreak and has been getting them frequently. Patient is currently on Valcyclovir 1 gram QD. Patient is wanting to know if she needs to rx twice a day to help suppress outbreaks more. OYEE RELATIONS ADMINISTRATOR Ctaina Flores RN [facility] 2022-10-12 09:21:14 Formatting of this n ote might be different from the original. Pt rx was sent 08/2022 with 3 refills. Pt contacted and informed and will contact pharmacy states she didn't know she had refills. [facility] 2022-09-29 10:00:00 Formatting of this n ote is different from the original. Images from the original note were not included. Venipuncture collection performed by clean technique on the left anticubitus. Total of 1 attempts were made. Slight pressure and a bandage/dressing were applied to the site(s). The patient experienced no complications. The following specimens were processed according to instructions and sent to [facility] laboratories per lab order on 09/29/2022 : LT BLUE SST 1 RED LAV 2 PPT DK GREEN (LiHep) DK GREEN (SodH) LINARES DK BLUE (K2) DK BLUE (S) ACD Blood Culture NIPT/NTD T [facility] 2022-09-09 13:31:08 Formatting of this n ote might be different from the original. Rx sent, let patient know, and to follow-up as scheduled. T [facility] 2022-08-28 10:02:18 Spoke with patient, states that she is having sores on her genital area. Patient requested to be swab by Mrs. Guerrero. Advised patient that Carmen is out today and will return Wednesday. Patient going out of town next Wednesday. Patient offered appt today per Dr. Hodges. Catina Flores RN 08/28/2022 10:12 AM Catina Flores RN [facility]
[2023-12-13] MEDS ORDERED: METOCLOPRAMIDE 10 MG/2mL INJ ONE (13:13)
[2023-12-13] MEDS ORDERED: NA CHLORIDE 0.9% 1,000 ML ONE (13:14)
--- NOTE | 2023-12-13 13:46 | RAD REPORT ---
EXAMINATION: US FIRST TRIMESTER TRANSVAGINAL WITH DOPPLER CLINICAL INDICATION: with pelvic pain TECHNIQUE: Real-time obstetrical ultrasonography of the maternal pelvis and first trimester was performed transvaginally. Color and spectral Doppler evaluation of the ovaries was performed. COMPARISON: No prior exam. FINDINGS: The uterus measures 9 x 5 x 5 cm. A gestational sac is present within the endometrium. Within this is a pole crown centimeters. T iny subchorionic bleed is present. Cardiac activity at 1 79 bpm 3.3 cm left ovarian cyst. Blood flow to the left ovary present. No follow-up imaging recommended. Right ovary not seen secondary to overlying bowel gas. Right and left adnexa unremarkable No significant free fluid IMPRESSION: Single live intrauterine with an estimated gestational age 8 weeks 4 days DAMON 07/20/2024
[2023-12-13 14:10] LABS: Absolute Eosinophils 0.1 K/uL (0-0.5); Absolute Lymphocytes (CBC) 2.2 K/uL (0.7-4.9); Absolute Monocytes 0.6 K/uL (0.1-1.3); Absolute Neutrophil 8.9 K/uL (1.8-8.0); Basophils % 0.2 % (0-1.3); Eosinophils % 0.7 % (0-4.4); Hematocrit 43.8 % (36.0-45.0); Hemoglobin 14.3 g/dL (12.0-15.0); Lymphocytes % 18.9 % (15.3-44.8); MCH 30.7 pg (27.0-35.0); MCHC 32.6 g/dL (32.0-36.0); MCV 94.1 fL (80-100); MPV 7.2 fL (7.6-11.3); Monocytes % 5.1 % (3.3-12.3); Neutrophils % 75.1 % (41.7-73.7); Platelets 372 thou/uL (152-406); RBC Red Blood Cell Count 4.65 M/uL (3.86-4.86); Red Cell Distribution Width 13.5 % (12.1-15.2)
[2023-12-13 14:27] LABS: Specific Gravity > 1.030 (1.005-1.030)
[2023-12-13 14:33] LABS: Specific Gravity > 1.030 (1.005-1.030); Sqamous Epithelial <5 /HPF (None Seen); Urine Bacteria None Seen /HPF (<20); Urine Bilirubin NEGATIVE (Negative); Urine Blood Negative (Negative); Urine Clarity Extremely Turbid (Clear); Urine Color Yellow (Yellow); Urine Crystals Unidentified Few /HPF (None Seen); Urine Culture Reflex Order NOT NEEDED; Urine Glucose NEGATIVE (Negative); Urine Ketones 2+ (Negative); Urine Micro Reflex YN NO BILL MICROSCOPIC; Urine Mucus 4+ /HPF (None Seen); Urine Nitrite NEGATIVE (Negative); Urine Protein 1+ (Negative); Urine Urobilinogen 1+ (Normal); Urine WBC <5 /HPF (<5); Urine WBC Clump Rare /HPF (None Seen); Urine Yeast (Budding) Trace /HPF (None Seen); Urine pH 7.5 (5.0-7.0)
--- NOTE | 2023-12-13 15:00 | EDPHYS ---
Physician Documentation [facility] Name: Gina Henry Age: 28 yrs Sex: Female : 1995 Arrival Date: 12/13/2023 Time: 11:31 Bed 11 Private MD: ED Physician Shawn Wilder HPI: 12/12 12:55 This 28 yrs old Unknown Female presents to ER via Ambulatory with complaints of sb4 Vomiting - 8wks preg. 12:55 The patient presents to the emergency department with nausea, vomiting. Onset: The sb4 symptoms/episode began/occurred 2 day(s) ago. Possible causes: . The symptoms are aggravated by food , The symptoms are alleviated by nothing. Associated signs and symptoms: The patient has no apparent associated signs or symptoms. The patient has not experienced similar symptoms in the past. 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 - Infectious Disease History:: Denies. - Social history:: Smoking status: Patient denies any tobacco usage or history of. ROS: 12:55 Constitutional: Negative for fever, chills, and weight loss, sb4 12:55 Abdomen/GI: Positive for nausea and vomiting, 12:55 All other systems are negative, Exam: 12:55 Head/Face: Normocephalic, atraumatic. Eyes: Extra-ocular motions intact. Periorbital sb4 areas with no swelling, redness, or edema. ENT: Mucous membranes moist. Skin: Warm, dry with normal turgor. Normal color with no rashes, no lesions, and no evidence of cellulitis. 12:55 Constitutional: The patient appears alert, awake, vomiting Vital Signs: 12:03 BP 144 / 95; Pulse 86; Resp 18; Temp 97; Pulse Ox 100% ; Pain 0/10; ll1 14:58 BP 147 / 71; Pulse 93; Resp 18; Pulse Ox 100% on R/A; ar6 12:03 Pain Scale: Adult ll1 MDM: 11:51 Medical Screening Exam initiated sb4 14:58 Data reviewed: vital signs, nurses notes, lab test result(s), radiologic studies, and sb4 as a result, I will discharge patient. Counseling: I had a detailed discussion with the patient and/or guardian regarding the historical points, exam findings, and any diagnostic results supporting the discharge/admit diagnosis, lab results, radiology results, to return to the emergency department if symptoms worsen or persist or if there are any questions or concerns that arise at home. 12/12 12:11 Order name: CBC with Diff; Complete Time: 14:43 sb4 12/12 12:11 Order name: BMP; Complete Time: 17:54 sb4 12/12 12:11 Order name: Magnesium; Complete Time: 17:54 sb4 12/12 12:11 Order name: UAM; Complete Time: 14:48 sb4 12/12 12:11 Order name: HCG-Quantitative; Complete Time: 17:54 sb4 12/12 12:11 Order name: Test, Urine; Complete Time: 14:56 sb4 12/12 12:48 Order name: Transvaginal OB; Complete Time: 13:46 EDMS 12/12 12:11 Order name: IV Start; Complete Time: 13:21 sb4 12/12 14:14 Order name: PO challenge; Complete Time: 14:43 sb4 Administered Medications: 15:10 Discontinued: ns 0.9% 1000 ml IV at 1 bolus Per protocol; to be given as a bolus over ar6 60 minutes 13:21 Drug: NS 0.9% IV 1000 ml IV at 1 bolus Per protocol; to be given as a bolus over 60 ar6 minutes Route: IV; Rate: 1 bolus; Site: left antecubital; 13:21 Follow up: Response: No adverse reaction; IV Status: Completed infusion; IV Intake: ar6 1000ml 13:21 Drug: metoCLOPramide IVP 10 mg IVP once; over 1 to 2 minutes Route: IVP; Site: left ar6 antecubital; 14:36 Follow up: Response: No adverse reaction ar6 Disposition Summary: 12/13/23 14:59 Discharge Ordered Notes: Location: Home sb4 Problem: new sb4 Symptoms: have improved sb4 Condition: Stable sb4 Diagnosis - Vomiting of , unspecified sb4 Followup: sb4 - With: Emergency Department - When: As needed - Reason: Trouble breathing, Worsening of condition Discharge Instructions: - Discharge Summary Sheet sb4 - Hyperemesis Gravidarum sb4 - Morning Sickness, [id number]-bc-Qqlp sb4 Forms: - Patient Portal Instructions sb4 - Leadership Thank You Letter sb4 Prescriptions: - Reglan 10 mg Oral tablet - take 1 tablet ORAL route every 6 hours; 20 tablet; Refills: 0, Product sb4 Selection Permitted Signatures: Dispatcher [employer] EDSherita Mackenzie, RN RN ll1 Kely Coleman PA-C PAMontserrat sb4 Jessica Seymour RN RN ar6 Corrections: (The following items were deleted from the chart) 11:38 11:38 Allergies: Anesthesia; ll1 ll1 12:48 12:11 Transvaginal Study (Probe)+US.RAD.BJORNZ ordered. EDAZ EDMS
--- NOTE | 2023-12-13 15:00 | ER ---
Nurse's Notes [facility] Name: Gina Henry Age: 28 yrs Sex: Female : 1995 Arrival Date: 12/13/2023 Time: 11:31 Bed 11 Private MD: Diagnosis: Vomiting of , unspecified Presentation: 12/12 12:03 Chief complaint: Patient states: N/V for 2 weeks. Will not stop vomiting for 24 hours ll1 straight. 8 weeks . Coronavirus screen: Client denies travel out of the [place] in the last 14 days. At this time, the client does not indicate any symptoms associated with coronavirus-19. Ebola Screen: Patient denies travel to an Ebola-affected area in the 21 days before illness onset. Initial Sepsis Screen: Does the patient meet any 2 criteria? No. Patient's initial sepsis screen is negative. Does the patient have a suspected source of infection? No. Patient's initial sepsis screen is negative. Risk Assessment: Do you want to hurt yourself or someone else? Patient reports no desire to harm self or others. Onset of symptoms was November 29, 2023. 12:03 Method Of Arrival: Ambulatory ll1 12:03 Acuity: PHILL 3 ll1 Triage Assessment: 12:05 General: Appears distressed, uncomfortable, Behavior is cooperative, appropriate for ll1 age, restless. Pain: Denies pain. Neuro: Reports weakness. GI: Reports nausea, vomiting. 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 - Infectious Disease History:: Denies. - Social history:: Smoking status: Patient denies any tobacco usage or history of. Screenin:25 [facility] ED Fall Risk Assessment (Adult) History of falling in the last 3 months, ar6 including since admission No falls in past 3 months (0 pts) Confusion or Disorientation No (0 pts) Intoxicated or Sedated No (0 pts) Impaired Gait No (0 pts) Mobility Assist Device Used No (0 pt) Altered Elimination No (0 pt) Score/Fall Risk Level 0 - 2 = Low Risk Oriented to surroundings, Maintained a safe environment, Educated pt \T\ family on fall prevention, incl call for assistance when getting out of bed, Hourly rounding (assess needs \T\ fall precautionary measures) done. Abuse screen: Denies threats or abuse. Denies injuries from another. Nutritional screening: No deficits noted. Tuberculosis screening: No symptoms or risk factors identified. Assessment: 13:25 General: Appears in no apparent distress. uncomfortable, Behavior is calm, cooperative, ar6 appropriate for age. Pain: Denies pain. Neuro: Level of Consciousness is awake, alert, obeys commands, Oriented to person, place, time, situation. Cardiovascular: Capillary refill < 3 seconds. Respiratory: Airway is patent. GI: Abdomen is round pt. reports being 8 weeks Reports nausea, vomiting, pt. reports uncontrolled nausea and vomiting x2 days. : No signs and/or symptoms were reported regarding the genitourinary system. EENT: Oral mucosa is moist. Derm: Skin is intact, is healthy with good turgor, Skin is dry, Skin is pink, warm \T\ dry. Musculoskeletal: No signs and/or symptoms reported regarding the musculoskeletal system. Vital Signs: 12:03 BP 144 / 95; Pulse 86; Resp 18; Temp 97; Pulse Ox 100% ; Pain 0/10; ll1 14:58 BP 147 / 71; Pulse 93; Resp 18; Pulse Ox 100% on R/A; ar6 12:03 Pain Scale: Adult ll1 ED Course: 11:34 Patient arrived in ED. ra3 11:38 Arm band placed on. ll1 11:48 Kely Coleman PA-C is PHCP. sb4 11:48 Shawn Wilder MD is Attending Physician. sb4 12:05 Triage completed. ll1 12:48 Transvaginal OB In Process Unspecified. EDMS 13:00 Inserted saline lock: 20 gauge in left antecubital area, using aseptic technique. IV is ar6 patent, is intact. 13:05 Patient placed in an exam room, on a stretcher. hb 13:10 Jessica Seymour, RN is Primary Nurse. ar6 13:25 Patient has correct armband on for positive identification. Bed in low position. Call ar6 light in reach. Side rails up X 1. Provided Education on: plan of care. Pulse ox on. NIBP on. Door closed. Lights dimmed. Moved to private room. Warm blanket given. 13:25 No provider procedures requiring assistance completed. ar6 14:16 UAM Sent. ar6 14:16 HCG-Quantitative Sent. ar6 14:16 Test, Urine Sent. ar6 15:09 No apparent distress. ar6 15:09 IV discontinued, intact, bleeding controlled, No redness/swelling at site. Pressure ar6 dressing applied. Administered Medications: 15:10 Discontinued: ns 0.9% 1000 ml IV at 1 bolus Per protocol; to be given as a bolus over ar6 60 minutes 13:21 Drug: NS 0.9% IV 1000 ml IV at 1 bolus Per protocol; to be given as a bolus over 60 ar6 minutes Route: IV; Rate: 1 bolus; Site: left antecubital; 13:21 Follow up: Response: No adverse reaction; IV Status: Completed infusion; IV Intake: ar6 1000ml 13:21 Drug: metoCLOPramide IVP 10 mg IVP once; over 1 to 2 minutes Route: IVP; Site: left ar6 antecubital; 14:36 Follow up: Response: No adverse reaction ar6 Medication: 13:25 VIS not applicable for this client. ar6 Intake: 13:21 IV: 1000ml; Total: 1000ml. ar6 Outcome: 14:59 Discharge ordered by . sb4 15:09 Discharged to home ambulatory, ar6 15:09 Condition: good 15:09 Discharge instructions given to patient, Instructed on discharge instructions, follow up and referral plans. medication usage, Demonstrated understanding of instructions, follow-up care, medications, Prescriptions given X 1, 15:10 Patient left the ED. ar6 Signatures: Dispatcher [employer] EDMS Mera Bennett RN Sherita Perez RN RN ll1 Kely Coleman, PA-C PA-C [email or web address] Almita Christensen ra3 Jessica Seymour, RN RN ar6 Corrections: (The following items were deleted from the chart) 11:38 11:38 Allergies: Anesthesia; ll1 ll1
[2023-12-13 15:05] LABS: Anion Gap 9.5 mEq/L (5.0-15.0); Magnesium 1.9 mg/dL (1.6-2.4); Potassium 3.5 mEq/L (3.5-5.1)
[2023-12-13 16:46] VITALS: TEMP 97; O2SAT 100
[2023-12-13 16:52] VITALS: BP 147/71
== END 2023-12-13 15:10 | disposition home or self-care (01) ==
LOC: ER 11:31
DX: O21.9 Vomiting of pregnancy, unspecified (principal); Z3A.08 8 weeks gestation of pregnancy
CPT/HCPCS: 85025; 81001; 80048; 36415; 83735; 81025; 84702; 76817; 96374; 99284; J2765; J7030

== ENCOUNTER 2023-12-20 10:52 | Emergency (ER) | payer OTHER ==
--- OUTSIDE RECORDS SUMMARY | 2023-12-20 10:57 | XMS REPORT | Continuity of Care Document ---
Author Name Unknown Address [address] [facility] [place] [address] [facility] thconnect Address [address] [facility] [place] [address] Care Team Providers Care Filenet Architect Name Role Phone LUZ MACIAS Primary Care Physician UnavailJUANITA Olivera Attending Clinician Unavailable ARELIS NDIAYE Attending Clinician ARELIS Guzmán Attending Clinician LUZ Rivera Attending Clinician Unavailable KATHY NEIL Attending Clinician Unavailable Arelis Ndiaye MD Attending Clinician + [phone] Doctor Unassigned, B And E Attending Clinician U Luz Stock MD Attending Clinician [phone], [facility] Attending Clinician Unavailable Alejandro Nelson Attending Clinician + Luz Macias MD Attending Clinician + RODOLFO HODGES Attending Clinician Unavailable JAZMINE GUERRERO Attending Clinician UnavailJAZMINE Centeno Attending Clinician Unavailtre holland Doctor Unassigned, B And E Attending Clinician U cristiano 2, [facility] Attending Clinician Unavailable ALEJANDRO GALE Attending Clinician Unavailable Maria Eugenia Nelson LMSW Attending Clinician Rodolfo Whitehead MD Attending Clinician [phone] Florencia Waggoner LMSW Attending Clinician [phone] Alejandro White MA Attending Clinician Unavailab le Lab, Ang - Db Attending Clinician Unavailable Juanita Broussard MD Attending Clinician [phone] Lexus ALFREDO Attending Clinician Unavailable Lexus Patel Attending Clinician [phone] Nurse, [facility] Attending Clinician Un available Yair Pedro MD Attending Clinician [phone] Julienne Perla DO Attending Clinician [phone] JUANITA BROUSSARD Admitting Clinician Unavailable Lexus ALFREDO Admitting Clinician Unavailable Juanita Broussard MD Admitting Clinician [phone] Payers Payer Name Policy Type Policy Number Effective Date Expirati on Date Source [facility] [id number] 2021 00:00:00 Problems Condition Name Condition Details Condition Category Status Onset Date Resolution Date Last Treatment Date Treating Clinician Comments Source Sexual behavior with high risk of exposure to communicab le disease Sexual behavior with high risk of exposure to communicab le disease Disease Active 10-19 00:00: 00 [facility] Other iron deficiency anemia Other iron deficiency anemia Disease Active 10-19 00:00: 00 [facility] Recurrent genital HSV (herpes simplex virus) infection Recurrent genital HSV (herpes simplex virus) infection Disease Active 2022-02 00:00: 00 [facility] Financial difficulty Financial difficulty Disease Active 2022-02 00:00: 00 [facility] Does not have health insurance Does not have health insurance Disease Active 2022-02 00:00: 00 [facility] Other social stressor Other social stressor Disease Active 09-29 00:00: 00 [facility] Other social stressor Other social stressor Disease Active 09-29 00:00: 00 [facility] Primary insomnia Primary insomnia Disease Active 09-29 00:00: 00 [facility] Vaginal discharge Vaginal discharge Disease Active 06-23 00:00: 00 [facility] Possible exposure to STD Possible exposure to STD Disease Active 06-23 00:00: 00 [facility] Essential hypertensi on Essential hypertensi on Disease Active 8 00:00: 00 [facility] BMI 40.0-44.9, adult BMI 40.0-44.9, adult Disease Active 8-12 00:00: 00 [facility] Binge-eati ng disorder, extreme Binge-eati ng disorder, extreme Disease Active 10-03 00:00: 00 [facility] 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 Disease Active 8 00:00: 00 [facility] Anxiety Anxiety Disease Active 10-03 00:00: 00 [facility] Screening examinatio n for venereal disease Screening examinatio n for venereal disease Disease Active 10-03 00:00: 00 [facility] PTSD (post-trau matic stress disorder) PTSD (post-trau matic stress disorder) Disease Active 10-03 00:00: 00 [facility] Marijuana use, episodic Marijuana use, episodic Disease Active 10-03 00:00: 00 [facility] Screening for viral disease Screening for viral disease Disease Active 10-03 00:00: 00 [facility] Obesity (BMI 30-39.9) Obesity (BMI 30-39.9) Disease Active 2020-02 2- 00:00: 00 [facility] Positive urine drug screen Positive urine drug screen Disease Active 2020-02 2- 00:00: 00 [facility] Term Term Disease Resolve d 2020- 2-26 00:00: 00 2022-08-28 00:00:00 2022-08-28 14:25:57 [facility] Gestationa l hypertensi on, third trimester Gestationa l hypertensi on, third trimester Disease Resolve d 2020- 2-26 00:00: 00 2022-08-28 00:00:00 2022-08-28 14:26:00 [facility] Single liveborn, born in hospital, delivered by vaginal delivery Single liveborn, born in hospital, delivered by vaginal delivery Disease Resolve d 2020-02 2-27 00:00: 00 2021-03-21 00:00:00 2021-03-21 11:36:26 [facility] Uterine contractio ns Uterine contractio ns Disease Resolve d 2020-02 2-26 00:00: 00 2021-03-21 00:00:00 2021-03-21 11:36:26 [facility] Insufficie nt care in third trimester Insufficie nt care in third trimester Disease Resolve d 2020-02 2- 00:00: 00 2021-03-21 00:00:00 2021-03-21 11:36:26 [facility] Pre-eclamp annette in third trimester Pre-eclamp annette in third trimester Disease Resolve d 2020-02 2- 00:00: 00 2021-03-21 00:00:00 2021-03-21 11:36:26 [facility] Allergies, Adverse Reactions, Alerts Allergy Name Allergy Type Status Severity Reaction(s) Onset Date Inactive Date Treating Clinician Comments Source NO KNOWN ALLERGIE S Drug Class Active [facility] Social History Social Habit Start Date Stop Date Quantity Comments Source ASSERTION 2023-10-28 00:00:00 [facility] History SDOH Alcohol Frequency [facility] History SDOH Alcohol Std Drinks [facility] History SDOH Alcohol Binge [facility] History of tobacco use Current smoker [facility] Gender identity [facility] Sexual orientation U [facility] Alcoholic beverage intake 2023-12-02 00:00:00 2023-12-02 00:00:00 Current drinker of alcohol (finding) [facility] History of Social function 2023-10-20 00:00:00 2023-10-20 00:00:00 [facility] Alcohol intake 2023-03-26 00:00:00 2023-03-26 00:00:00 Current drinker of alcohol (finding) [facility] Exposure to SARS-CoV-2 (event) 2022-05-31 00:00:00 2022-06-10 10:02:00 Not sure [facility] Tobacco use and exposure 2021-10-29 00:00:00 2021-10-29 00:00:00 Smokeless tobacco non-user [facility] Alcohol Comment 2021-03-21 00:00:00 2021-03-21 00:00:00 wine [facility] Sex assigned at 1995 00:00:00 1995 00:00:00 [facility] Smoking Status Start Date Stop Date Source Ex-smoker 2021-10-29 00:00:00 2021-10-29 [facility]00[facility] Ordered Medication Name Filled Medication Name Start Date Stop Date Current Medication? Ordering Clinician Indication Dosage Frequency Signature (SIG) Comments Components Source PNV no.95/jamie us fum/folic ac ( ORAL) 2023-02 08:26: 32 Yes Take by mouth. [facility] ondansetron (ZOFRAN) 4 mg tablet 2023-02 00:00: 00 Yes [id number] 4mg Take 1 tablet by mouth every 8 (eight) hours as needed for Nausea and Vomiting (N/V). [facility] labetaloL 100 mg tablet 11-15 00:00: 00 Yes [id number] 100mg Take 1 tablet by mouth every 12 (twelve) hours. [facility] venlafaxine XR 37.5 mg 24 hr capsule 11-11 00:00: 00 Yes [id number] 37.5mg TAKE 1 CAPSULE BY MOUTH DAILY WITH BREAKFAST. [facility] BUPROPION SR 150 mg SR tablet 11-11 00:00: 00 Yes [id number] 150mg TAKE 1 TABLET BY MOUTH IN THE MORNING AND IN THE EVENING [facility] metformin ER 500 mg 24 hr tablet 10-19 00:00: 00 Yes [id number] 500mg Take 1 tablet by mouth daily with breakfast. [facility] ferrous sulfate 325 mg (65 mg iron) tablet 10-19 00:00: 00 Yes [id number] 325mg Take 1 tablet by mouth in the morning and 1 tablet in the evening. [facility] traZODone 100 mg tablet 10-19 00:00: 00 12-01 00:00 :00 No [id number] 100mg Take 1 tablet by mouth at bedtime. [facility] buPROPion SR (WELLBUTRIN SR) 150 mg SR tablet 10-19 00:00: 00 11-11 00:00 :00 No [id number] 150mg Take 1 tablet by mouth in the morning and 1 tablet in the evening. [facility] venlafaxine XR 37.5 mg 24 hr capsule 10-19 00:00: 00 11-11 00:00 :00 No [id number] 37.5mg Take 1 capsule by mouth daily with breakfast. [facility] VALACYCLOVI R 1 gram tablet 09-05 00:00: 00 Yes [id number] 1g TAKE 1 TABLET BY MOUTH EVERY DAY IN THE MORNING [facility] BUPROPION 75 mg tablet 07-15 00:00: 00 10-19 00:00 :00 No [id number] TAKE 1 TABLET BY MOUTH IN THE MORNING AT NOON AND IN THE EVENING [facility] metformin ER 500 mg 24 hr tablet 07-12 00:00: 00 10-19 00:00 :00 No 500mg Take 1 tablet by mouth daily with breakfast. [facility] buPROPion 75 mg tablet 430 00:00: 00 07-15 00:00 :00 No [id number] 75mg Take 1 tablet by mouth in the morning and 1 tablet at noon and 1 tablet in the evening. [facility] valACYclovi r (VALTREX) 1 gram tablet 2- 00:00: 00 09-05 00:00 :00 No [id number] 1g Take 1 tablet by mouth in the morning. [facility] metformin ER 500 mg 24 hr tablet 2-02 00:00: 00 07-12 00:00 :00 No [id number] 500mg Take 1 tablet by mouth daily with breakfast. [facility] traZODone 100 mg tablet 2022-02 00:00: 00 10-19 00:00 :00 No [id number] 100mg Take 1 tablet by mouth at bedtime. [facility] buPROPion 75 mg tablet 2022-02 00:00: 00 06-20 00:00 :00 No [id number] 75mg Take 1 tablet by mouth in the morning and 1 tablet at noon and 1 tablet in the evening. [facility] valACYclovi r (VALTREX) 1 gram tablet 2022-02 00:00: 00 03-26 00:00 :00 No [id number] 1g Take 1 tablet by mouth in the morning. [facility] metformin ER 500 mg 24 hr tablet 2022-02 00:00: 00 03-26 00:00 :00 No [id number] 500mg Take 1 tablet by mouth daily with breakfast. [facility] buPROPion 75 mg tablet 09-29 00:00: 00 12-30 00:00 :00 No [id number] 75mg Take 1 tablet by mouth in the morning and 1 tablet at noon and 1 tablet in the evening. [facility] traZODone 50 mg tablet 09-29 00:00: 00 12-30 00:00 :00 No [id number] 50mg Take 1 tablet by mouth at bedtime. [facility] venlafaxine XR 37.5 mg 24 hr capsule 09-09 00:00: 00 09-29 00:00 :00 No [id number] 37.5mg Take 1 capsule by mouth in the morning. [facility] valACYclovi r (VALTREX) 1 gram tablet 08-31 00:00: 00 12-08 00:00 :00 No [id number] 1g Take 1 tablet by mouth in the morning. [facility] valACYclovi r (VALTREX) 1 gram tablet 08-28 00:00: 00 08-31 00:00 :00 No [id number] 1g Take 1 tablet by mouth in the morning for 5 days. [facility] amLODIPine 10 mg tablet 2-07 00:00: 00 12-30 00:00 :00 No [id number] 5mg Take 0.5 tablets by mouth in the morning. [facility] venlafaxine XR 37.5 mg 24 hr capsule 2- 00:00: 00 09-09 00:00 :00 No [id number] 37.5mg Take 1 capsule by mouth in the morning. [facility] venlafaxine XR 37.5 mg 24 hr capsule 2021-02 2- 00:00: 00 03-31 00:00 :00 No [id number] 37.5mg Take 1 capsule by mouth in the morning. [facility] Kit 10-29 00:00: 00 Yes [id number] I10 - Dispense blood pressure cuff (any brand), take BP at home BID [facility] Kit 10-29 00:00: 00 Yes [id number] I10 - Dispense blood pressure cuff (any brand), take BP at home BID [facility] VENLAFAXINE XR 37.5 mg 24 hr capsule 9- 00:00: 00 01-26 00:00 :00 No [id number] TAKE 1 CAPSULE BY MOUTH EVERY DAY [facility] amLODIPine 10 mg tablet 8-12 00:00: 00 03-31 00:00 :00 No [id number] 5mg Take 0.5 tablets by mouth in the morning. [facility] Kit 8- 00:00: 00 10-29 00:00 :00 No [id number] I10 - Dispense blood pressure cuff (any brand), take BP at home BID [facility] ibuprofen 600 mg tablet 5-24 00:00: 00 03-31 00:00 :00 No [id number] 600mg Take 1 tablet by mouth every 6 (six) hours as needed for Pain (scale 4-6). [facility] vitamin w/FA tablet 2020-02 00:00: 00 Yes [id number] 1{tbl} Take 1 tablet by mouth daily. [facility] vitamin w/FA tablet 2020-02 00:00: 00 10-19 00:00 :00 No [id number] 1{tbl} Take 1 tablet by mouth daily. [facility] ferrous sulfate 325 mg (65 mg iron) tablet 2020-02 00:00: 00 10-19 00:00 :00 No [id number] 325mg Take 1 tablet by mouth 2 (two) times daily. [facility] Immunizations Ordered Immunization Name Filled Immunization Name Date Status Comments Source HPV9 2023-10-20 00:00:00 Completed [facility] Pneumococcal 20 Conjugate, PCV20 (Prevnar 20) 2023-10-20 00:00:00 Completed HPV9 Unknown Completed [facility] Pneumococcal 20 Conjugate, PCV20 (Prevnar 20) Unknown Completed [facility] HPV9 Unknown Completed [facility] Pneumococcal 20 Conjugate, PCV20 (Prevnar 20) Unknown Completed [facility] HPV9 Unknown Completed [facility] Pneumococcal 20 Conjugate, PCV20 (Prevnar 20) Unknown Completed [facility] HPV9 Unknown Completed [facility] Pneumococcal 20 Conjugate, PCV20 (Prevnar 20) Unknown Completed [facility] Vital Signs Vital Name Observation Time Observation Value Comments S ource Systolic blood pressure 2023-12-02 13:23:00 131 mm[Hg] [facility] Diastolic blood pressure 2023-12-02 13:23:00 84 mm[Hg] [facility] Heart rate 2023-12-02 13:23:00 90 /min [facility] Respiratory rate 2023-12-02 13:23:00 18 /min [facility] Body height 2023-12-02 13:23:00 166.4 cm [facility] Body weight 2023-12-02 13:23:00 87.136 kg [facility] BMI 2023-12-02 13:23:00 31.48 kg/m2 [facility] Systolic blood pressure 2023-11-16 13:27:00 147 mm[Hg] [facility] Diastolic blood pressure 2023-11-16 13:27:00 102 mm[Hg] [facility] Heart rate 2023-11-16 13:27:00 108 /min [facility] Body temperature 2023-11-16 13:27:00 36.78 Judy [facility] Body weight 2023-11-16 13:27:00 85.911 kg [facility] BMI 2023-11-16 13:27:00 31.04 kg/m2 [facility] Systolic blood pressure 2023-10-20 18:00:00 114 mm[Hg] [facility] Diastolic blood pressure 2023-10-20 18:00:00 77 mm[Hg] [facility] Heart rate 2023-10-20 18:00:00 88 /min [facility] Body temperature 2023-10-20 18:00:00 36.33 Judy [facility] Respiratory rate 2023-10-20 18:00:00 18 /min [facility] Body height 2023-10-20 18:00:00 166.4 cm [facility] Body weight 2023-10-20 18:00:00 86.274 kg [facility] BMI 2023-10-20 18:00:00 31.17 kg/m2 [facility] Oxygen saturation in Arterial blood by Pulse oximetry 2023-10-20 18:00:00 99 /min [facility] Systolic blood pressure 2023-07-13 14:39:00 123 mm[Hg] [facility] Diastolic blood pressure 2023-07-13 14:39:00 73 mm[Hg] [facility] Heart rate 2023-07-13 14:39:00 76 [facility] Body temperature 2023-07-13 14:39:00 36.78 Judy [facility] Respiratory rate 2023-07-13 14:39:00 16 /min [facility] Body height 2023-07-13 14:39:00 165.1 cm [facility] Body weight 2023-07-13 14:39:00 78.064 kg [facility] BMI 2023-07-13 14:39:00 28.64 kg/m2 [facility] Systolic blood pressure 2023-03-26 16:29:00 123 mm[Hg] [facility] Diastolic blood pressure 2023-03-26 16:29:00 69 mm[Hg] [facility] Heart rate 2023-03-26 16:29:00 78 /min [facility] Body temperature 2023-03-26 16:29:00 36.44 Judy [facility] Respiratory rate 2023-03-26 16:29:00 18 /min [facility] Body height 2023-03-26 16:29:00 165.1 cm [facility] Body weight 2023-03-26 16:29:00 83.28 kg [facility] BMI 2023-03-26 16:29:00 30.55 kg/m2 [facility] Oxygen saturation in Arterial blood by Pulse oximetry 2023-03-26 16:29:00 100 /min [facility] Systolic blood pressure 2022-12-30 16:39:00 127 mm[Hg] [facility] Diastolic blood pressure 2022-12-30 16:39:00 83 mm[Hg] [facility] Heart rate 2022-12-30 16:39:00 72 /min [facility] Body temperature 2022-12-30 16:39:00 36.39 Judy [facility] Respiratory rate 2022-12-30 16:39:00 18 /min [facility] Body height 2022-12-30 16:39:00 165.7 cm [facility] weight 2022-12-30 16:39:00 86.274 kg [facility] BMI 2022-12-30 16:39:00 31.41 kg/m2 [facility] Oxygen saturation in Arterial blood by Pulse oximetry 2022-12-30 16:39:00 100 /min [facility] Systolic blood pressure 2022-12-08 17:58:00 122 mm[Hg] [facility] Diastolic blood pressure 2022-12-08 17:58:00 80 mm[Hg] [facility] Heart rate 2022-12-08 17:56:00 74 /min [facility] Respiratory rate 2022-12-08 17:56:00 18 /min [facility] Body height 2022-12-08 17:56:00 165.1 cm [facility] Body weight 2022-12-08 17:56:00 87.091 kg [facility] BMI 2022-12-08 17:56:00 31.95 kg/m2 [facility] Systolic blood pressure 2022-09-29 14:00:00 123 mm[Hg] [facility] Diastolic blood pressure 2022-09-29 14:00:00 85 mm[Hg] [facility] Heart rate 2022-09-29 13:59:00 79 /min [facility] Body temperature 2022-09-29 13:59:00 36.28 Judy [facility] Body height 2022-09-29 13:59:00 165.1 cm [facility] Body weight 2022-09-29 13:59:00 89.812 kg [facility] BMI 2022-09-29 13:59:00 32.95 kg/m2 [facility] Oxygen saturation in Arterial blood by Pulse oximetry 2022-09-29 13:59:00 99 /min [facility] Systolic blood pressure 2022-08-28 19:22:00 133 mm[Hg] [facility] Diastolic blood pressure 2022-08-28 19:22:00 82 mm[Hg] [facility] Heart rate 2022-08-28 19:22:00 105 /min [facility] Respiratory rate 2022-08-28 19:22:00 18 /min [facility] Body height 2022-08-28 19:22:00 166.4 cm [facility] Body weight 2022-08-28 19:22:00 92.534 kg [facility] BMI 2022-08-28 19:22:00 33.43 kg/m2 [facility] Systolic blood pressure 2022-06-10 15:57:00 134 mm[Hg] [facility] Diastolic blood pressure 2022-06-10 15:57:00 78 mm[Hg] [facility] Heart rate 2022-06-10 15:57:00 76 /min [facility] 2022-06-10 15:57:00 18 /min [facility] Body height 2022-06-10 15:57:00 166.4 cm [facility] Body weight 2022-06-10 15:57:00 94.802 kg [facility] BMI 2022-06-10 15:57:00 34.25 kg/m2 [facility] Systolic blood pressure 2022-04-29 22:47:00 134 mm[Hg] [place] [facility] Diastolic blood pressure 2022-04-29 22:47:00 89 mm[Hg] [facility] Heart rate 2022-04-29 22:47:00 85 /min [facility] Respiratory rate 2022-04-29 22:47:00 18 /min [facility] Body height 2022-04-29 22:47:00 165.1 cm [facility] Body weight 2022-04-29 22:47:00 93.895 kg [facility] BMI 2022-04-29 22:47:00 34.45 kg/m2 [facility] Systolic blood pressure 2022-03-31 19:54:00 125 mm[Hg] [facility] Diastolic blood pressure 2022-03-31 19:54:00 80 mm[Hg] [facility] Heart rate 2022-03-31 19:51:00 68 /min [facility] Body temperature 2022-03-31 19:51:00 35.83 Judy [facility] Respiratory rate 2022-03-31 19:51:00 18 /min [facility] Body height 2022-03-31 19:51:00 166.4 cm [facility] Body weight 2022-03-31 19:51:00 97.297 kg [facility] BMI 2022-03-31 19:51:00 35.15 kg/m2 [facility] Oxygen saturation in Arterial blood by Pulse oximetry 2022-03-31 19:51:00 100 /min [facility] Systolic blood pressure 2021-10-29 14:04:00 130 mm[Hg] [facility] Diastolic blood pressure 2021-10-29 14:04:00 75 mm[Hg] [facility] Heart rate 2021-10-29 14:04:00 74 /min [facility] Body temperature 2021-10-29 14:04:00 36.33 Judy [facility] Respiratory rate 2021-10-29 14:04:00 17 /min [facility] Body height 2021-10-29 14:04:00 165.1 cm [facility] Body weight 2021-10-29 14:04:00 107.23 kg [facility] BMI 2021-10-29 14:04:00 39.34 kg/m2 [facility] Oxygen saturation in Arterial blood by Pulse oximetry 2021-10-29 14:04:00 99 /min [facility] Procedures Procedure Date / Time Performed Performing Clinician Source US OB TRANSVAGINAL 2023-12-02 13:52:50 Cuca Ndiaye [facility] POCT TEST 2023-11-16 00:00:00 Arelis Ndiaye [facility] PNEUMOCOCCAL 20 CONJUGATE (PREVNAR 20) VACCINE 2023-10-20 18:36:45 Luz Macias [facility] GARDASIL 9 (HPV 9V) VACCINE 2023-10-20 18:35:30 Luz Macias [facility] FREE T4 2023-03-26 16:55:00 Alejandro Gale [facility] THYROID STIMULATING HORMONE 2023-03-26 16:55:00 Gale, [facility] COMP. METABOLIC PANEL (82016) 2023-03-26 16:55:00 [place] [facility] LIPID PANEL (53170)(TOTAL CHOLESTEROL, TRIGLYCERIDES, HDL) 2023-03-26 16:55:00 [place] [facility] CBC WITH DIFF 2023-03-26 16:55:00 [facility] GLYCOSYLATED HEMOGLOBIN (A1C) 2023-03-26 16:55:00 [place] [facility] HCV ANTIBODY 2023-03-26 16:55:00 [place] [facility] HIV 1/2 AG-AB WITH REFLEX 2023-03-26 16:55:00 [place] [facility] HSV 1&2, VZV NAAT 2022-08-28 19:22:00 Rodolfo Hodges [facility] HSV 1 AND 2 GLYCOPROTEIN G IGG 2022-06-10 20:03:00 Fabricio [facility] ADC OR BIB ONLY - RPR 2022-06-10 20:03:00 Trijaqui [facility] HIV 1/2 AG-AB WITH REFLEX 2022-06-10 20:03:00 Fabricio [facility] GC & CHLAMYDIA AMPLIFIED ASSAY 2022-06-10 17:03:00 aFbricio [facility] TRICHOMONAS AMPLIFIED ASSAY 2022-06-10 17:03:00 Fabricio [facility] ASSIGNMENT OF BENEFITS 2022-03-31 19:10:46 Docto r Unassigned, B And E [facility] FREE T4 2021-10-29 14:51:00 Colleen [facility] THYROID STIMULATING HORMONE 2021-10-29 14:51:[address] [facility] COMP. METABOLIC PANEL (74749) 2021-10-29 14:51:[address] [facility] LIPID PANEL (55274)(TOTAL CHOLESTEROL, TRIGLYCERIDES, HDL) 2021-10-29 14:51:[address] [facility] CBC WITH DIFF 2021-10-29 14:51:00 Luz Macias [facility] GLYCOSYLATED HEMOGLOBIN (A1C) 2021-10-29 14:51:00 Luz Macias [facility] HCV ANTIBODY 2021-10-29 14:51:00 Luz Macias [facility] FREE T3 2021-10-29 14:51:00 Colleen [facility] Encounters Start Date/Time End Date/Time Encounter Type Admission Type Attending Clinicians Care Facility Care Department Encounter ID Source 2021-02-16 01:10:00 Inpatient JUANITA BARKLEY [facility] JACINDA [id number] [facility] 2023-12-30 08:45:00 2023-12-30 08:45:00 Outpatient R AMRIT Mckoy, ARELIS Mckoy [facility] [id number] [facility] 2023-12-20 09:45:00 2023-12-20 09:45:00 Outpatient R KATHY NEIL [facility] [id number] [facility] 2023-12-20 00:00:00 2023-12-20 08:45:14 Telephone Amrit mckoy [facility] 1..114 350.1.13.10 4.2.7.2.686 [id number] 134 [id number] [facility] 2023-11-12 00:00:00 2023-12-18 18:25:49 Patient Secure Msg Amrit s [facility] ..114 350.1.13.10 4.2.7.2.686 [id number] 134 [id number] [facility] 2023-12-08 00:00:00 2023-12-08 09:04:54 Refill Amrit mckoy [facility] 1..114 350.1.13.10 4.2.7.2.686 [id number] 134 [id number] [facility] 2023-10-29 00:00:00 2023-12-04 18:24:04 Patient Secure Msg Doctor Unassigned, B And E Doctor Unassigned, B And E [facility] ([place]AREN) 1.2840.114 350.1.13.10 4.2.7.2.686 [id number] [facility] 2023-10-29 00:00:00 2023-12-04 18:23:12 Patient Secure Msg Doctor Unassigned, B And E Doctor Unassigned, B And E [facility] ([place]AREN) 1..114 350.1.13.10 4.2.7.2.686 [id number] [facility] 2023-12-02 08:15:00 2023-12-02 08:51:58 Outpatient R KIM-CHAPIS S, ARELIS KIM-CHAPIS S, ARELIS [facility] [id number] [facility] 2023-12-02 08:15:00 2023-12-02 08:51:58 Office Visit Kim-Chapis s Arelis [facility] 1..114 350.1.13.10 4.2.7.2.686 [id number] 134 [id number] [facility] 2023-11-16 08:15:00 2023-11-16 08:45:25 Outpatient R KIM-CHAPIS S, ARELIS KIM-CHAPIS S, ARELIS [facility] [id number] [facility] 2023-11-16 08:15:00 2023-11-16 08:45:25 Office Visit Kim-Chapis s Arelis [facility] 1.20.114 350.1.13.10 4.2.7.2.686 [id number] 134 [id number] [facility] 2023-11-12 00:00:00 2023-11-12 21:36:09 [facility] 1.2.840.114 350.1.13.10 4.2.7.2.686 [id number] 044 [id number] [facility] 2023-10-21 00:00:00 2023-10-21 12:25:59 Patient Secure Msg Luz Mac[facility] 1.2.840.114 350.1.13.10 4.2.7.2.686 [id number] 044 [id number] [facility] 2023-10-20 14:15:00 2023-10-20 14:30:00 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, Adc Lab Luz Macias 2, Adc Lab [facility] 1.2.840.114 350.1.13.10 4.2.7.2.686 [id number] [facility] 2023-10-20 13:00:00 2023-10-20 13:43:08 Outpatient R LUZ MACIAS [facility] [id number] [facility] 2023-10-20 13:00:00 2023-10-20 13:43:08 Office Visit Luz Macias [facility] 1.2.840.114 350.1.13.10 4.2.7.2.686 [id number] 044 [id number] [facility] 2023-09-04 00:00:00 2023-09-06 12:02:55 Refill Alejandro Gale [facility] 1.2.840.114 350.1.13.10 4.2.7.2.686 [id number] 044 [id number] [facility] 2023-07-15 00:00:00 2023-07-16 12:59:35 Refill Luz Macias [facility] 1.2.840.114 350.1.13.10 4.2.7.2.686 [id number] [id number] [facility] 2023-07-13 09:30:00 2023-07-13 10:01:10 Outpatient R NETTIE-CHAPIS S, ARELIS KIM-CHAPIS S, ARELIS [facility] [id number] [facility] 2023-07-13 09:30:00 2023-07-13 10:01:10 Office Visit Dayami Lightsol [facility] 1.2.840.114 350.1.13.10 4.2.7.2.686 [id number] 134 [id number] [facility] 2023-07-01 11:30:00 2023-07-01 11:30:00 Outpatient R NETTIE-CHAPIS S, ARELIS NETTIE-CHAPIS S, [facility] [id number] [facility] 2023-06-21 00:00:00 2023-06-21 00:00:00 Rome ColleenLuz [facility] 1.2.840.114 350.1.13.10 4.2.7.2.686 [id number] 044 [id number] [facility] 2023-05-28 10:00:00 2023-05-28 10:00:00 Outpatient RODOLFO PAIGE [facility] [id number] [facility] 2023-05-07 13:00:00 2023-05-07 13:00:00 Outpatient RODOLFO PAIGE [facility] [id number] [facility] 2023-05-03 10:00:00 2023-05-03 10:00:00 Outpatient JAZMINE GORDON CHERYAL [facility] [id number] [facility] 2023-03-29 00:00:00 2023-03-29 00:00:00 Patient Secure Msg Doctor Unassigned, B And E [facility] 1.2.840.114 350.1.13.10 4.2.7.2.686 [id number] [id number] [facility] 2023-03-26 11:00:00 2023-03-26 11:28:33 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2.840.114 350.1.13.10 4.2.7.2.686 [id number] [facility] 2022-12-30 10:40:00 2022-12-30 12:51:38 Outpatient R LUZ MACIAS [facility] [id number] [facility] 2022-12-30 10:40:00 2022-12-30 12:51:38 Office Visit Luz Macias [facility] 1.2.840.114 350.1.13.10 4.2.7.2.686 [id number] [id number] [facility] 2022-12-30 00:00:00 2022-12-30 00:00:00 Patient Outreach Maria Eugenia Nelson [facility] 1..840.114 350.1.13.10 4.2.7.2.686 [id number] [id number] [facility] 2022-12-08 13:00:00 2022-12-08 13:07:41 Outpatient [facility] [id number] [facility] 2022-12-08 13:00:00 2022-12-08 13:07:41 Office Visit Jazmine Guerrero [facility] 1.84.114 350.1.13.10 4.2.7.2.686 [id number] 134 [id number] [facility] 2022-10-16 00:00:00 2022-10-16 00:00:00 Patient Secure Msg Doctor Unassigned, B And E [facility] 1.84.114 350.1.13.10 4.2.7.2.686 [id number] [facility] 2022-10-09 00:00:00 2022-10-09 00:00:00 Refill Rodolfo Hodges [facility] 1.840.114 350.1.13.10 4.2.7.2.686 [id number] 134 [id number] [facility] 2022-09-30 00:00:00 2022-09-30 00:00:00 Patient Outreach Edilson Florencia Sue [facility] 1.840.114 350.1.13.10 4.2.7.2.686 [id number] [id number] [facility] 2022-09-29 10:00:00 2022-09-29 10:15:00 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, 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7.2.686 [id number] 044 [id number] [facility] 2022-08-31 00:00:00 2022-08-31 00:00:00 Telephone Rodolfo Hodges [facility] 1.2.840.114 350.1.13.10 4.2.7.2.686 [id number] 134 [id number] [facility] 2022-08-28 14:00:00 2022-08-28 14:30:00 Office Visit Rodolfo Hodges [facility] 1.2.840.114 350.1.13.10 4.2.7.2.686 [id number] 134 [id number] [facility] 2022-08-28 14:00:00 2022-08-28 14:00:00 Outpatient R RODOLFO HODGES [facility] [id number] [facility] 2022-08-27 00:00:00 2022-08-27 00:00:00 Patient Secure Jazmine Adame [facility] 1.2.840.114 350.1.13.10 4.2.7.2.686 [id number] 134 [id number] [facility] 2022-06-15 00:00:00 2022-06-15 00:00:00 [facility] 1.2.840.114 350.1.13.10 4.2.7.2.686 [id number] 134 [id number] [facility] 2022-06-11 00:00:00 2022-06-11 00:00:00 [facility] 1.2.840.114 350.1.13.10 4.2.7.2.686 [id number] 134 [id number] [facility] 2022-06-11 00:00:00 2022-06-11 00:00:00 Patient Secure Msg White Alejandro Sue [facility] 1.2.840.114 350.1.13.10 4.2.7.2.686 [id number] 134 [id number] [facility] 2022-06-10 15:00:00 2022-06-10 15:25:33 Swing Grinder [facility] 1.840.114 350.1.13.10 4.2.7.2.686 [id number] [facility] 2022-06-10 11:00:00 2022-06-10 11:16:44 [facility] [id number] [facility] 2022-06-10 11:00:00 2022-06-10 11:16:44 [facility] 1.2840.114 350.1.13.10 4.2.7.2.686 [id number] [facility] 2022-05-28 11:30:00 2022-05-28 11:30:00 Outpatient R [facility] [id number] [facility] 2022-04-29 16:30:00 2022-04-29 16:59:12 Outpatient R JAZMINE GUERRERO CHERYAL [facility] [id number] [facility] 2022-04-29 16:30:00 2022-04-29 16:59:12 Office Visit Jazmine Guerrero [facility] 1.114 350.1.13.10 4.2.7.2.686 [id number] 134 [id number] [facility] 2022-04-22 10:00:00 2022-04-22 10:00:00 Outpatient R JAZMINE GUERRERO CHERYAL [facility] [id number] [facility] 2022-04-14 10:45:00 2022-04-14 10:45:00 Outpatient R JAZMINE GUERRERO CHERYAL [facility] [id number] [facility] 2022-03-31 13:20:00 2022-03-31 13:40:00 Office Visit Luz Macias [facility] 1..114 350.1.13.10 4.2.7.2.686 [id number] [facility] 2022-03-31 13:20:00 2022-03-31 13:20:00 Outpatient R ULZ MACIAS [facility] [id number] [facility] 2022-03-31 00:00:00 2022-03-31 00:00:00 Orders Only Doctor Unassigned, B And E [facility] 1.0.114 350.1.13.10 4.2.7.2.686 [id number] [facility] 2022-03-24 10:30:00 2022-03-24 10:30:00 Outpatient R ADJUANITA WICK [facility] [id number] [facility] 2022-03-24 10:30:00 2022-03-24 10:30:00 Outpatient R ADUM [facility] [id number] [facility] 2022-03-24 10:30:00 2022-03-24 10:30:00 Outpatient R ADUM [facility] [id number] [facility] 2022-02-05 00:00:00 2022-02-05 00:00:00 Refill Luz Macias [facility] 1.2.840.114 350.1.13.10 4.2.7.2.686 [id number] [facility] 2022-01-26 00:00:00 2022-01-26 00:00:00 Refill Luz Macias [facility] 1.2.840.114 350.1.13.10 4.2.7.2.686 [id number] [facility] 2021-10-29 10:15:00 2021-10-29 10:30:00 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, Adc Lab Martinmelina Luz [facility] 1.2.840.114 350.1.13.10 4.2.7.2.686 [id number] [facility] 2021-10-29 10:15:00 2021-10-29 10:15:00 Outpatient R LUZ MACIAS [facility] [id number] [facility] 2021-10-29 08:40:00 2021-10-29 10:05:12 Office Visit Colleen Luz [facility] 1.2.840.114 350.1.13.10 4.2.7.2.686 [id number] [facility] 2021-10-29 08:40:00 2021-10-29 10:05:12 Outpatient R LUZ MACIAS [facility] [id number] [facility] 2021-10-25 00:00:00 2021-10-25 00:00:00 Refill Luz Macias [facility] 1.84.114 350.1.13.10 4.2.7.2.686 [id number] [facility] 2021-10-03 10:00:00 2021-10-03 11:15:13 Outpatient R LUZ MACIAS [facility] [id number] [facility] 2021-10-03 10:00:00 2021-10-03 11:15:13 Office Visit Colleen [facility] 1.114 350.1.13.10 4.2.7.2.686 [id number] [facility] 2021-10-03 10:00:00 2021-10-03 11:15:13 Outpatient R LUZ MACIAS [facility] [id number] [facility] 2021-08-27 11:11:55 2021-08-27 23:59:00 Outpatient R RANCHODELANO JUANITA [facility] [id number] [facility] 2021-08-27 11:00:00 2021-08-27 23:59:00 Hospital Encounter Juanita Broussard Sue [facility] 1.114 350.1.13.10 4.2.7.2.686 [id number] [facility] 2021-08-27 00:00:00 2021-08-27 00:00:00 Orders Only Doctor Unassigned, B And E [facility] 1.114 350.1.13.10 4.2.7.2.686 [id number] [facility] 2021-08-07 00:00:00 2021-08-07 00:00:00 Outpatient R JUANITA BROUSSARD [facility] [id number] [facility] 2021-07-25 09:00:00 2021-07-25 09:33:00 Outpatient R JUANITA BROUSSARD [facility] [id number] [facility] 2021-07-25 09:00:00 2021-07-25 09:33:00 Office Visit [facility]ita [facility] 1.2.840.114 350.1.13.10 4.2.7.2.686 [id number] 134 [id number] [facility] 2021-07-15 11:27:00 2021-07-15 16:33:00 Emergency X JUNI, K [facility] ERT [id number] [facility] 2021-07-15 11:27:00 2021-07-15 16:33:00 Emergency Lexus Alfredo Zaida [facility] 1.2.840.114 350.1.13.10 4.2.7.2.686 [id number] [facility] 2021-07-15 00:00:00 2021-07-15 00:00:00 Telephone AdJuanita wick [facility] 1.2.840.114 350.1.13.10 4.2.7.2.686 [id number] 134 [id number] [facility] 2021-07-04 15:00:00 2021-07-04 15:00:00 Outpatient R JUANITA BROUSSARD [facility] [id number] [facility] 2021-06-16 10:00:00 2021-06-16 10:00:00 Outpatient R [facility] [id number] [facility] 2021-05-26 00:00:00 2021-05-26 00:00:00 Refill RanchoJuanita wick L [facility] 1..840.114 350.1.13.10 4.2.7.2.686 [id number] [facility] 2021-04-10 10:00:00 2021-04-10 10:00:00 Outpatient R LUZ MACIAS [facility] [id number] [facility] 2021-04-01 10:00:00 2021-04-01 10:00:00 Outpatient R [facility] [id number] [facility] 2021-03-27 10:00:00 2021-03-27 10:00:00 Outpatient R COLLEENLUZ [facility] [id number] [facility] 2021-03-21 11:15:00 2021-03-21 12:25:19 [facility] [id number] 2021-03-21 11:15:00 2021-03-21 12:25:19 Routine Visit Addelano, Juanita [facility] 1..840.114 350.1.13.10 4.2.7.2.686 [id number] [facility] 2021-03-21 11:15:00 2021-03-21 12:25:19 Out[facility] R [facility] [id number] 2021-03-13 13:15:00 2021-03-13 13:15:00 Outpatient R ADUM [facility] [id number] [facility] 2021-02-24 10:00:00 2021-02-24 10:15:00 Nurse Visit Nurse, [facility] Adum, Juanita Rogers [facility] 1.2.840.114 350.1.13.10 4.2.7.2.686 [id number] 134 [id number] [facility] 2021-02-24 10:00:00 2021-02-24 10:00:00 Outpatient R ADJUANITA WICK [facility] [id number] [facility] 2021-02-24 00:00:00 2021-02-24 00:00:00 Orders Only Doctor Unassigned, B And E [facility] 1.2.840.114 350.1.13.10 4.2.7.2.686 [id number] [facility] 2021-02-16 01:10:00 2021-02-18 19:30:00 Inpatient X JUANITA BROUSSARD [facility] JACINDA [id number] [facility] 2021-02-16 01:10:00 2021-02-18 19:30:00 Hospital Encounter Juanita Broussard [facility] 1.2.840.114 350.1.13.10 4.2.7.2.686 [id number] [facility] 2021-02-16 10:00:00 2021-02-17 07:08:00 Anesthesia Event Yair Pedro [facility] 1.2.840.114 350.1.13.10 4.2.7.2.686 [id number] [facility] 2021-02-14 14:28:00 2021-02-14 15:48:00 Outpatient X JUANITA BROUSSARD [facility] JACINDA [id number] [facility] 2021-02-14 14:28:00 2021-02-14 15:48:00 Emergency Julienne Perla Juanita Broussard [facility] 1.2.840.114 350.1.13.10 4.2.7.2.686 [id number] [facility] Results Test Description Test Time Test Comments Results Result Co mments Source [id number] 22:14:09* Test Item Value Reference Range Interpretation Comme nts HCV Ab (test code = 65032-3) Negative HCV Semi-Quantitative (test code = 28999-5) 0.01 [facility] Ag-Ab with [id number] 19:51:03* Test Item Value Reference Range Interpretation Comme nts HIV Semi-quantitative (test code = 46083-2) 0.07 Negative SHONA (test code = SHONA) Non-reactive for HIV-1 antigen and HIV-1/HIV-2 antibodies. ?No laboratory evidence of HIV infection. ?Repeat in 2-4 weeks if acute HIV infection is suspected. [facility] [id number] 19:41:44 * Test Item Value Reference Range Interpretation Comme nts TSH (test code = 8260328867) 0.66 0.45-4.70 Lab Interpretation (test cod e = 41643-8) Normal [facility] [id number] 19:41:44 * Test Item Value Reference Range Interpretation Comme nts TSH (test code = 2473832919) 0.66 0.45-4.70 Lab Interpretation (test cod e = 16383-8) Normal [facility] [id number] 19:27:39* Test Item Value Reference Range Interpretation Comme nts FREE T4 (test code = 8280858683) 1.05 0.78-2.20 Lab Interpretation (test cod e = 93411-2) Normal [facility] [id number] 19:27:39* Test Item Value Reference Range Interpretation Comme nts FREE T4 (test code = 6076265819) 1.05 0.78-2.20 Lab Interpretation (test cod e = 53023-8) Normal [facility] with [id number] 19:23:40* Test Item Value Reference Range Interpretation [...] 34.1 g/dL 31.6-35.1 RDW-SD (test code = 66009-2) 44.0 fL 39.0-49.9 RDW-CV (test code = 788-0) 12.8 % 12.0-15.5 PLT (test code = 777-3) 246 166-358 MPV (test code = 30251-6) 9.5 fL 9.5-12.9 NRBC/100 WBC (test code = 0230982357) 0.0 0.0-10.0 NRBC x10^3 (test code = 1691594849) See_Comment [Automated me ssage] The system which generated this result transmitted reference range: 10*3/?L. The reference range was not used to interpret this result as normal/abnormal. GRAN MAT (NEUT) % (test code = 770-8) 58.5 % IMM GRAN % (test code = 2579411491) 0.10 % LYMPH % (test code = 736-9) 33.2 % MONO % (test code = 5905-5) 4.8 % EOS % (test code = 713-8) 2.8 % BASO % (test code = 706-2) 0.6 % GRAN MAT x10^3(ANC) (test code = 2726318561) 4.60 10*3/uL 1.88-7.09 IMM GRAN x10^3 (test code = 4589943313) 0.00-0.06 LYMPH x10^3 (test code = 731-0) 2.62 10*3/uL 1.32-3.29 MONO x10^3 (test code = 742-7) 0.38 10*3/uL 0.33-0.92 EOS x10^3 (test code = 711-2) 0.22 10*3/uL 0.03-0.39 BASO x10^3 (test code = 704-7) 0.05 10*3/uL 0.01-0.07 [facility] with [id number] 19:23:40* Test Item Value Reference Range Interpretation [...] 34.1 g/dL 31.6-35.1 RDW-SD (test code = 59204-3) 44.0 fL 39.0-49.9 RDW-CV (test code = 788-0) 12.8 % 12.0-15.5 PLT (test code = 777-3) 246 166-358 MPV (test code = 58129-3) 9.5 fL 9.5-12.9 NRBC/100 WBC (test code = 6556533443) 0.0 0.0-10.0 NRBC x10^3 (test code = 6174637513) See_Comment [Automated me ssage] The system which generated this result transmitted reference range: 10*3/?L. The reference range was not used to interpret this result as normal/abnormal. GRAN MAT (NEUT) % (test code = 770-8) 58.5 % IMM GRAN % (test code = 5581377069) 0.10 % LYMPH % (test code = 736-9) 33.2 % MONO % (test code = 5905-5) 4.8 % EOS % (test code = 713-8) 2.8 % BASO % (test code = 706-2) 0.6 % GRAN MAT x10^3(ANC) (test code = 7749237830) 4.60 10*3/uL 1.88-7.09 IMM GRAN x10^3 (test code = 0478786894) 0.00-0.06 LYMPH x10^3 (test code = 731-0) 2.62 10*3/uL 1.32-3.29 MONO x10^3 (test code = 742-7) 0.38 10*3/uL 0.33-0.92 EOS x10^3 (test code = 711-2) 0.22 10*3/uL 0.03-0.39 BASO x10^3 (test code = 704-7) 0.05 10*3/uL 0.01-0.07 [facility] (89850)(Total Cholesterol, Triglycerides, HDL)2023-03-26 19:10:38* Test Item Value Reference Range Interpretation Comme nts CHOL (test code = 4666627254) 130 mg/dL 120-200 HDL (test code = 0728051814) 51 mg/dL >=50 HDLC RATIO (test code = 9257295133) 2.5 <=4.5 TRIG (test code = 8152580522) 56 mg/dL 30-170 LDL CHOL (test code = 38259-3) 68 mg/dL <=160 VLDL (test code = 4712983945) 11 mg/dL 5-60 Lab Interpretation (test cod e = 65361-6) [facility] ([facility]382)(Total Cholesterol, Triglycerides, HDL)2023-03-26 19:10:38* Test Item Value Reference Range Interpretation Comme nts CHOL (test code = 8262591869) 130 mg/dL 120-200 HDL (test code = 1405946486) 51 mg/dL >=50 HDLC RATIO (test code = 5353239211) 2.5 <=4.5 TRIG (test code = 8068585394) 56 mg/dL 30-170 LDL CHOL (test code = 36880-2) 68 mg/dL <=160 VLDL (test code = 3807304207) 11 mg/dL 5-60 Lab Interpretation (test cod e = 12359-7) [facility] (96891)2023-03-26 19:10:18* Test Item Value Reference Range Interpretation Comme nts NA (test code = 5856760531) 139 mmol/L 135-145 K (test code = 8954571924) 3.9 mmol/L 3.5-5.0 CL (test code = 9841192280) 108 mmol/L 98-108 CO2 TOTAL (test code = 6327893462) 26 mmol/L 23-31 AGAP (test code = 6197515344) 5 2-16 BUN (test code = 4840290609) 13 mg/dL 7-23 GLUCOSE (test code = 3546000537) 79 mg/dL 70-110 CREATININE (test code = 5098994808) 0.83 mg/dL 0.50-1.04 TOTAL BILI (test code = 4659952636) 0.5 mg/dL 0.1-1.1 CALCIUM (test code = 6831886840) 9.3 mg/dL 8.6-10.6 T PROTEIN (test code = 0856738676) 7.4 g/dL 6.3-8.2 ALBUMIN (test code = 1882569048) 4.3 g/dL 3.5-5.0 ALK PHOS (test code = 0111617176) 73 U/L 34-122 ALTv (test code = 1742-6) 19 U/L 5-35 AST(SGOT) (test code = 5330422321) 25 U/L 13-40 eGFR (test code = 50811-5) 99.9 mL/min/1.73m2 CKD-EPI eGFR (20 21). Assuming creatinine has been stable day-to-day for at least three months, the eGFR indicates Category G1 (>= 90 mL/min/1.73 m2) [facility]. Metabolic Panel (88579)2023-03-26 19:10:18* Test Item Value Reference Range Interpretation Comme nts NA (test code = 7906732499) 139 mmol/L 135-145 K (test code = 1203449007) 3.9 mmol/L 3.5-5.0 CL (test code = 4842339151) 108 mmol/L 98-108 CO2 TOTAL (test code = 7689432551) 26 mmol/L 23-31 AGAP (test code = 1382902978) 5 2-16 BUN (test code = 7806162931) 13 mg/dL 7-23 GLUCOSE (test code = 9875324294) 79 mg/dL 70-110 CREATININE (test code = 1757649186) 0.83 mg/dL 0.50-1.04 TOTAL BILI (test code = 8725500862) 0.5 mg/dL 0.1-1.1 CALCIUM (test code = 4033960402) 9.3 mg/dL 8.6-10.6 T PROTEIN (test code = 9680285694) 7.4 g/dL 6.3-8.2 ALBUMIN (test code = 9574360822) 4.3 g/dL 3.5-5.0 ALK PHOS (test code = 7399218635) 73 U/L 34-122 ALTv (test code = 1742-6) 19 U/L 5-35 AST(SGOT) (test code = 3953521702) 25 U/L 13-40 eGFR (test code = 34561-4) 99.9 mL/min/1.73m2 CKD-EPI eGFR (20 21). Assuming creatinine has been stable day-to-day for at least three months, the eGFR indicates Category G1 (>= 90 mL/min/1.73 m2) [facility]2023-03-26 18:17:25* Test Item Value Reference Range Interpretation Comme [facility] HGB A1C (test code = 4548-4) 4.9 % 4.0-5.7 SHONA (test code = SHONA) Reference RangesNormal: <5.7%Prediabetes: 5.7 - 6.4%Diabetes: > 6.5% Lab Interpretation (test code = 28925-4) [facility]2023-03-26 18:17:25* Test Item Value Reference Range Interpretation Comme [facility] HGB A1C (test code = 4548-4) 4.9 % 4.0-5.7 SHONA (test code = SHONA) Reference RangesNormal: <5.7%Prediabetes: 5.7 - 6.4%Diabetes: > 6.5% Lab Interpretation (test code = 79067-0) [facility] AND 2 GLYCOPROTEIN G [id number] 18:31:26* Test Item Value Reference Range Interpretation Comme nts HSV I IgG (test code = 5076646131) Negative Negative HSV II IgG (test code = 6789953536) Positive Negative SHONA (test code = SHONA) Positive - IgG ant ibody to HSV 1 and/or HSV 2 detected.Negative - No HSV 1 and/or HSV 2 antibody detected.Equivocal - A second sample should be sent. [facility] AG-AB WITH [id number] 12:44:37* Test Item Value Reference Range Interpretation Comme nts HIV Semi-quantitative (test code = 83215-2) 0.08 Negative SHONA (test code = SHONA) Non-reactive for HIV-1 antigen and HIV-1/HIV-2 antibodies. ?No laboratory evidence of HIV infection. ?Repeat in 2-4 weeks if acute HIV infection is suspected. [facility] - [id number] 03:57:58* Test Item Value Reference Range Interpretation Comme nts RPR (Qualitative) (test code = 42732-4) Nonreactive Nonreactive Lab Interpretation (test cod e = 63551-8) Normal [facility] Notes Date/Time Note Provider Source 2023-12-20 08:38:56 Name and verified, pt states she went to ER on 12/12 at [facility] and was given Reglan for n/v, states the Zofran given by Dr. Ndiaye was not working. Pt reports she is feeling fatigue and weak. She was able to eat about 1/4 of a grilled cheese sandwich last night but vomited an hour later but it wasn't her food "it was more like acid". Pt states she has no family support and has her 2 year old son at home with her. Pt advised if she can not come in she should call 911. Pt verbalized understanding. Appt made for pt to be seen today Cindi Duong RN 12/20/2023 8:42 AM Cindi Duong RN [facility] - Health 2023-11-12 09:31:16 Images from the original note [...] Macias MD Last refill: 10/20/2023 Rx #: [id number] Pharmacy comment: REQUEST FOR 90 DAYS PRESCRIPTION. DX Code Needed. Psychiatry: Antidepressants Tcjtap1411/12/2023 08:32 AM Protocol Details Manual Review: Verify [...] Macias MD Last refill: 10/20/2023 Rx #: [id number] Pharmacy comment: REQUEST FOR 90 DAYS PRESCRIPTION. DX Code Needed. Psychiatry: Antidepressants Blufvk4111/12/2023 08:32 AM Protocol Details Manual Review: Verify no changes in dose in the last 3 months Valid encounter within last 12 months This request has changes from the previous prescription. To be filled at: [facility]/pharmacy #[id number] Norma Carmichael MA [facility] 2023-10-21 12:21:07 Call placed to pt to discuss lab results. Pt requesting a copy of HIV results to be sent to her via [email or web address] as she was unable to view these results. Message sent. Siri Ramsey RN [facility] 2023-10-20 14:15:00 Images from the original note were not included. Venipuncture collection performed by clean technique on the left anticubitus. Total of 1 attempts were made. Slight pressure and a bandage/dressing were applied to the site(s). The patient experienced no complications. The following specimens were processed according to instructions and sent to [facility] laboratories per lab order on 10/20/2023: LT BLUE SST 1 RED LAV 2 PPT DK GREEN (LiHep) DK GREEN (SodH) LINARES DK BLUE (K2) DK BLUE (S) ACD Blood Culture NIPT/NTD [facility] 2023-09-06 12:01:31 Images from the original note [...] LAMIN Navarro Last refill: 08/07/2023 Rx #: [id number] Anti-Herpes Raytfx4309/06/2023 09:54 AM Protocol Details Valid encounter within last 12 months Herpes simplex virus (HSV) is on problem list To be filled at: [facility]/pharmacy #[id number] Last Refilled: 08/07/23 Recent Visits Date Type Provider Dept 03/26/23 Office Visit Alejandro Gale FNP [facility] 12/30/22 Office Visit Luz Macias MD [facility] 09/29/22 Office Visit Luz Macias MD [facility] 03/31/22 Office Visit Luz Macias MD [facility] Showing recent visits within past 540 days with a meds authorizing provider and meeting all other requirements Future Appointments No visits were found meeting these conditions. Showing future appointments within next 150 days with a meds authorizing provider and meeting all other requirements Alejandro Duong MA [facility] 2023-07-15 13:53:14 Images from the original note [...] Macias MD Last refill: 06/22/2023 Rx #: [id number] Pharmacy comment: REQUEST FOR 90 DAYS PRESCRIPTION. DX Code Needed. Psychiatry: Antidepressants Imoszd7907/15/2023 09:33 AM Protocol Details Manual Review: Verify no changes in dose in the last 3 months Valid encounter within last 12 months This request has changes from the previous prescription. To be filled at: [facility]/pharmacy #[id number] - [place], [place] - [address] [place] [address] AT [facility] Last Refilled: 06/22/23 Recent Visits Date Type Provider Dept 03/26/23 Office Visit Alejandro Gale FNP [facility] 12/30/22 Office Visit Luz Macias MD [facility] 09/29/22 Office Visit Luz Macias MD [facility] 03/31/22 Office Visit Luz Macias MD [facility] Showing recent visits within past 540 days with a meds authorizing provider and meeting all other requirements Future Appointments No visits were found meeting these conditions. Showing future appointments within next 150 days with a meds authorizing provider and meeting all other requirements Alejandro Duong MA [facility] 2023-06-22 12:54:58 Refill sent for 30 days only. Needs appointment prior to next refill request. [facility] 2023-06-22 09:42:29 Images from the original note [...] (12/30/2022) by Luz Macias MD Psychiatry: Antidepressants Umkzek6806/21/2023 06:11 PM Protocol Details Manual Review: Verify no changes in dose in the last 3 months Valid encounter within last 12 months To be filled at: [facility]/pharmacy #[id number] AT [facility] Last Refilled: 12/30/22 Recent Visits Date Type Provider Dept 03/26/23 Office Visit Alejandro Gale FNP [facility] 12/30/22 Office Visit Luz Macias MD [facility] 09/29/22 Office Visit Luz Macias MD [facility] 03/31/22 Office Visit Luz Macias MD [facility] Showing recent visits within past 540 days with a meds authorizing provider and meeting all other requirements Future Appointments No visits were found meeting these conditions. Showing future appointments within next 150 days with a meds authorizing provider and meeting all other requirements Alejandro Duong MA [facility] 2023-03-26 11:00:00 Images from the original note were not included. Venipuncture collection performed by clean technique on the left anticubitus. Total of 1 attempts were made. Slight pressure and a bandage/dressing were applied to the site(s). The patient experienced no complications. 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 Patient verbalized understanding. Going to schedule appt. Caitna Flores RN 03/19/2023 3:36 PM Y MAKER Catina Flores RN [facility] 2023-03-18 13:13:34 Spoke with patient, states that she has an HSV outbreak and has been getting them frequently. Patient is currently on Valcyclovir 1 gram QD. Patient is wanting to know if she needs to rx twice a day to help suppress outbreaks more. Y MAKER Catina Flores RN [facility] 2022-10-12 09:21:14 Formatting of this n ote might be different from the original. Pt rx was sent 08/2022 with 3 refills. Pt contacted and informed and will contact pharmacy states she didn't know she had refills. T [facility] 2022-09-29 10:00:00 Formatting of this n ote is different from the original. Images from the original note were not included. Venipuncture collection performed by clean technique on the left anticubitus. Total of 1 attempts were made. Slight pressure and a bandage/dressing were applied to the site(s). The patient experienced no complications. The following specimens were processed according to instructions and sent to [facility] laboratories per lab order on 09/29/2022 : LT BLUE SST 1 RED LAV 2 PPT DK GREEN (LiHep) DK GREEN (SodH) LINARES DK BLUE (K2) DK BLUE (S) ACD Blood Culture NIPT/NTD [facility] 2022-09-09 13:31:08 Formatting of this n ote might be different from the original. Rx sent, let patient know, and to follow-up as scheduled. [facility] 2022-08-28 10:02:18 Spoke with patient, states that she is having sores on her genital area. Patient requested to be swab by Mrs. Guerrero. Advised patient that Jazmine is out today and will return Wednesday. Patient going out of town next Wednesday. Patient offered appt today per Dr. Hodges. Catina Flores RN 08/28/2022 10:12 AM Catina Flores RN [facility]
[2023-12-20] MEDS ORDERED: ONDANSETRON 4 MG/2 ML VIAL ONE (11:41)
[2023-12-20] MEDS ORDERED: NA CHLORIDE 0.9% 1,000 ML ONE (11:42)
[2023-12-20 11:59] LABS: Absolute Lymphocytes (CBC) 2.2 K/uL (0.7-4.9); Absolute Monocytes 0.5 K/uL (0.1-1.3); Basophils % 0.3 % (0-1.3); Eosinophils % 0.4 % (0-4.4); Hematocrit 44.3 % (36.0-45.0); Lymphocytes % 18.8 % (15.3-44.8); MCH 31.3 pg (27.0-35.0); MCHC 33.8 g/dL (32.0-36.0); MCV 92.4 fL (80-100); MPV 7.2 fL (7.6-11.3); Monocytes % 4.2 % (3.3-12.3); Neutrophils % 76.3 % (41.7-73.7); Platelets 353 thou/uL (152-406); RBC Red Blood Cell Count 4.79 M/uL (3.86-4.86)
[2023-12-20 12:09] LABS: Albumin 3.9 g/dL (3.4-5.0); Bilirubin Total 0.6 mg/dL (0.2-1.0); Globulin 4.1 g/dL (2.3-3.5); Magnesium 1.8 mg/dL (1.6-2.4)
--- NOTE | 2023-12-20 12:51 | RAD REPORT ---
EXAMINATION: Transvaginal OB COMPARISON: None. HISTORY: ABD PAIN TECHNIQUE: Real-time ultrasound was performed through the pelvis. A transvaginal scan was performed t o better visualize the intrauterine contents and adnexa. FINDINGS: There is a single living intrauterine . Cardiac activity measured 174 BPM. There is no visible subchorionic hemorrhage. Both ovaries are visualized and appear unremarkable. 3 cm left corpus luteal cyst suspected. There is no free fluid in the cul-de-sac. Measurements and Calculations: Belcourt rump length 2.7 cm, consistent with a sonographic age of 9 weeks, 4 days. Estimated date of de livery is 07/20/2024 IMPRESSION: Single living intrauterine , with a composite sonographic age of 9 weeks, 4 days.
[2023-12-20 13:20] LABS: Specific Gravity > 1.030 (1.005-1.030)
[2023-12-20 13:25] LABS: Specific Gravity > 1.030 (1.005-1.030); Sqamous Epithelial 20-50 /HPF (None Seen); Urine Bacteria <20 /HPF (<20); Urine Bilirubin NEGATIVE (Negative); Urine Blood Negative (Negative); Urine Clarity Extremely Turbid (Clear); Urine Color Yellow (Yellow); Urine Culture Reflex Order NOT NEEDED; Urine Glucose NEGATIVE (Negative); Urine Ketones 3+ (Negative); Urine Microscopic Reflex YN ORDER UMIC; Urine Mucus 4+ /HPF (None Seen); Urine Nitrite NEGATIVE (Negative); Urine Protein 1+ (Negative); Urine RBC None Seen /HPF (None Seen); Urine Urobilinogen 1+ (Normal); Urine WBC <5 /HPF (<5)
[2023-12-20] MEDS ORDERED: PROMETHAZINE INJ 25 MG/ML AMP ONE (14:12)
--- NOTE | 2023-12-20 14:52 | EDPHYS ---
Physician Documentation [facility] Name: Gina Henry Age: 28 yrs Sex: Female : 1995 Arrival Date: 12/20/2023 Time: 10:52 Bed 10 Private MD: ED Physician Lior Morrow HPI: 12/19 11:20 This 28 yrs old Female presents to ER via Ambulatory with complaints of cp Nausea/Vomiting, 9 weeks . 11:20 The patient presents to the emergency department with nausea, that is moderate, cp vomiting, that is intermittent, abdominal pain, of the right upper quadrant and left upper quadrant. Onset: The symptoms/episode began/occurred gradually, and became worse today. Possible causes: . Associated signs and symptoms: Pertinent positives: anorexia, Pertinent negatives: constipation, diarrhea, dysuria, fever, GI bleeding. Severity of symptoms: in the emergency department the symptoms are unchanged despite home interventions. 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, LMP 10/14/2023, Verified, EDC 07/20/2024, Gestational cm10 age from LMP: 9 weeks 4 days Historical: - Allergies: 11:10 Anesthesia; cm10 - Home Meds: 11:10 Reglan Oral [Active]; labetalol 100 mg Oral tablet 1 tab every 12 hours [Active]; cm10 venlafaxine 37.5 mg oral tablet 1 tab daily [Active]; bupropion HCl 150 mg Oral tablet, sustained-release 12 hr 1 tab 2 times per day [Active]; metformin 500 mg Oral Tablet, Extended Release 24 hr 1 tab daily [Active]; ferrous sulfate 325 mg (65 mg iron) Oral tablet 1 tab 2 times per day [Active]; Valtrex 1 gram Oral tablet 1 tab daily [Active]; - PMHx: 11:10 Hypertensive disorder; Hyperemesis Gravidarum; cm10 - Immunization history:: Adult Immunizations up to date. - Infectious Disease History:: Denies. - Social history:: Smoking status: Patient denies any tobacco usage or history of. ROS: 11:25 Constitutional: Positive for poor PO intake, Negative for body aches, chills, fever, cp 11:25 Eyes: Negative for injury, pain, redness, and discharge, cp 11:25 ENT: Negative for drainage from ear(s), ear pain, sore throat, difficulty swallowing, difficulty handling secretions, 11:25 Cardiovascular: Negative for chest pain, palpitations, :25 Respiratory: Negative for cough, shortness of breath, wheezing, :25 Abdomen/GI: Positive for abdominal pain, nausea and vomiting, anorexia, Negative for diarrhea, constipation, hematemesis, 11:25 Neuro: Negative for altered mental status, dizziness, headache, weakness, 11:25 All other systems are negative, cp Exam: : Constitutional: The patient appears in no acute distress, alert, awake, non-toxic, well cp developed, well nourished, uncomfortable, 11:30 Head/Face: Normocephalic, atraumatic. cp 11:30 Eyes: Periorbital structures: appear normal, Conjunctiva: normal, no exudate, no injection, Sclera: no appreciated abnormality, Lids and lashes: appear normal, bilaterally, :30 ENT: External ear(s): are unremarkable, Nose: is normal, Mouth: Lips: moist, Oral mucosa: moist, Posterior pharynx: Airway: no evidence of obstruction, patent, 11:30 Chest/axilla: Inspection: normal, :30 Cardiovascular: Rate: normal, Rhythm: regular, :30 Respiratory: the patient does not display signs of respiratory distress, Respirations: normal, no use of accessory muscles, no retractions, labored breathing, is not present, Breath sounds: are clear throughout, no decreased breath sounds, no stridor, no wheezing, :30 Abdomen/GI: Inspection: abdomen appears normal, Bowel sounds: active, all quadrants, Palpation: soft, in all quadrants, mild abdominal tenderness, in the right upper quadrant and left upper quadrant, rebound tenderness, is not appreciated, voluntary guarding, is not appreciated, involuntary guarding, is not appreciated, :30 Back: CVA tenderness, is absent, Vital Signs: 11:14 BP 144 / 85; Pulse 88; Resp 17; Temp 98.7; Pulse Ox 100% on R/A; Weight 82.55 kg; cm10 Height 5 ft. 5 in. ; Pain 8/10; 13:18 BP 140 / 97; Pulse 74; Resp 18; Pulse Ox 100% on R/A; tl4 14:00 BP 138 / 93; Pulse 90; Resp 18; Pulse Ox 100% on R/A; tl4 15:15 BP 121 / 79; Pulse 76; Resp 20; Temp 98.6(O); Pulse Ox 100% on R/A; tl4 11:14 Body Mass Index 30.29 (82.55 kg, 165.1 cm) cm10 11:14 Pain Scale: Adult cm10 MDM: 11:17 Medical Screening Exam initiated cp 12:00 Differential diagnosis: gastritis, viral gastroenteritis, gastroenteritis, dehydration, cp electrolyte abnormality. 14:49 Data reviewed: vital signs, nurses notes, lab test result(s), radiologic studies, cp ultrasound. I considered the following discharge prescriptions or medication management in the emergency department Medications were administered in the Emergency Department. See MAR. Counseling: I had a detailed discussion with the patient and/or guardian regarding the historical points, exam findings, and any diagnostic results supporting the discharge/admit diagnosis, lab results, radiology results, to return to the emergency department if symptoms worsen or persist or if there are any questions or concerns that arise at home. Response to treatment: the patient's symptoms have markedly improved after treatment, vomiting resolved and patient observed tolerating po fluids. 12/19 11:13 Order name: CBC with Diff; Complete Time: 12:21 cp 12/19 12:22 Interpretation: Normal except: WBC 11.80; MPV 7.2; DOE% 76.3; NEUT A 9.0. cp 12/19 11:13 Order name: CMP; Complete Time: 12:21 cp 12/19 13:02 Interpretation: Normal except: NA 132; GLOB 4.1; A/G 1.0. 12/19 11:13 Order name: Lipase; Complete Time: 12:21 cp 12/19 11:13 Order name: Test, Urine; Complete Time: 13:55 cp 12/19 13:55 Interpretation: Reviewed. 12/19 11:13 Order name: Urinalysis w/ reflexes; Complete Time: 13:55 cp 12/19 13:55 Interpretation: Normal except: UCLA Extremely Turbid; Urine SG > 1.030; UKET 3+; UPROT cp 1+; UUROB 1+; UESTR 25; SQEPI 20-50; MUCUS 4+. 12/19 11:13 Order name: Magnesium; Complete Time: 12:21 cp 12/19 12:45 Order name: Transvaginal OB; Complete Time: 13:01 EDMS 12/19 11:13 Order name: IV Saline Lock; Complete Time: 11:39 cp 12/19 11:13 Order name: Labs collected and sent; Complete Time: 11:39 cp 12/19 13:02 Order name: PO challenge; Complete Time: 13:48 cp Administered Medications: 11:50 Drug: Ondansetron IVP 4 mg IVP once; over 2 minutes Route: IVP; Site: left antecubital; iw 13:18 Follow up: Response: No adverse reaction; Nausea is decreased tl4 11:50 Drug: NS 0.9% IV 1000 ml IV at 1 bolus Per protocol; to be given as a bolus over 60 iw minutes Route: IV; Rate: 1 bolus; Site: left antecubital; 15:17 Follow up: Response: No adverse reaction; IV Status: Completed infusion; IV Intake: tl4 1000ml 14:23 Drug: Promethazine IM 25 mg IM once Route: IM; Site: right ventrogluteal; tl4 15:16 Follow up: Response: No adverse reaction; Nausea is decreased tl4 Disposition: 17:55 I was immediately available on-site in the Emergency Department for consultation in the ms3 care of the patient. Disposition Summary: 12/20/23 14:51 Discharge Ordered Notes: Location: Home cp Problem: new cp Symptoms: have improved cp Condition: Stable cp Diagnosis - Other specified related conditions, first trimester cp - Nausea with vomiting, unspecified cp Followup: cp - With: Private Physician - When: 1 - 2 days - Reason: Recheck today's complaints Discharge Instructions: - Discharge Summary Sheet cp - Nausea and Vomiting, Adult cp Forms: - Medication Reconciliation Form cp - Antibiotic Education cp - Prescription Opioid Use cp - Patient Portal Instructions cp - Leadership Thank You Letter cp Prescriptions: - promethazine 25 mg Rectal suppository - insert 1 suppository RECTAL route every 4 to 6 hours as needed for nausea and cp vomiting; 20 suppository; Refills: 0, Product Selection Permitted - ondansetron 8 mg Oral Tablet,disintegrating - take 1 tablet ORAL route every 12 hours; 20 tablet; Refills: 0, Product cp Selection Permitted Signatures: Dis[facility] Pilar Perla RN RN iw Hermes Montano PA PA cp Lior Morrow DO DO ms3 Itzel Duong RN RN cm10 Nilay Campbell RN RN tl4 Corrections: (The following items were deleted from the chart) 12: 12:22 OB [employer]+US.RAD.BRZ ordered. EDMS EDMS 12/20 13:57 12/19 11:25 All other systems are negative, cp cp
--- NOTE | 2023-12-20 14:52 | ER ---
Nurse's Notes [facility] Name: Gina Henry Age: 28 yrs Sex: Female : 1995 Arrival Date: 12/20/2023 Time: 10:52 Bed 10 Private MD: Diagnosis: Other specified related conditions, first trimester;Nausea with vomiting, unspecified Presentation: 12/19 11:14 Chief complaint: Patient states: Sent to the ED by OB due to having ketones in urine. cm10 Pt reports that she is 9 weeks and has Hyperemesis Gravidarum. Coronavirus screen: Client denies travel out of the [place] in the last 14 days. Ebola Screen: Patient denies travel to an Ebola-affected area in the 21 days before illness onset. No symptoms or risks identified at this time. Initial Sepsis Screen: Does the patient meet any 2 criteria? No. Patient's initial sepsis screen is negative. Does the patient have a suspected source of infection? No. Patient's initial sepsis screen is negative. Risk Assessment: Do you want to hurt yourself or someone else? Patient reports no desire to harm self or others. Onset of symptoms was December 20, 2023. 11:14 Method Of Arrival: Ambulatory cm10 11:14 Acuity: PHILL 3 cm10 Triage Assessment: 11:16 General: Appears in no apparent distress. uncomfortable, Behavior is calm, cooperative. cm10 Neuro: No deficits noted. Level of Consciousness is awake, alert, obeys commands, Oriented to person, place, time, situation, Appropriate for age. Respiratory: No deficits noted. Airway is patent Respiratory effort is even, unlabored, Respiratory pattern is regular, symmetrical. 13:20 GI: Reports intolerance of fluids, intolerance of food, nausea, vomiting. 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, LMP 10/14/2023, Verified, EDC 07/20/2024, Gestational cm10 age from LMP: 9 weeks 4 days Historical: - Allergies: 11:10 Anesthesia; cm10 - Home Meds: 11:10 Reglan Oral [Active]; labetalol 100 mg Oral tablet 1 tab every 12 hours [Active]; cm10 venlafaxine 37.5 mg oral tablet 1 tab daily [Active]; bupropion HCl 150 mg Oral tablet, sustained-release 12 hr 1 tab 2 times per day [Active]; metformin 500 mg Oral Tablet, Extended Release 24 hr 1 tab daily [Active]; ferrous sulfate 325 mg (65 mg iron) Oral tablet 1 tab 2 times per day [Active]; Valtrex 1 gram Oral tablet 1 tab daily [Active]; - PMHx: 11:10 Hypertensive disorder; Hyperemesis Gravidarum; cm10 - Immunization history:: Adult Immunizations up to date. - Infectious Disease History:: Denies. - Social history:: Smoking status: Patient denies any tobacco usage or history of. Screenin:19 [facility] ED Fall Risk Assessment (Adult) History of falling in the last 3 months, tl4 including since admission No falls in past 3 months (0 pts) Confusion or Disorientation No (0 pts) Intoxicated or Sedated No (0 pts) Impaired Gait No (0 pts) Mobility Assist Device Used No (0 pt) Altered Elimination No (0 pt) Score/Fall Risk Level 0 - 2 = Low Risk Oriented to surroundings, Maintained a safe environment, Educated pt \T\ family on fall prevention, incl call for assistance when getting out of bed, Assessed \T\ reinforced patient's understanding of fall precautions. Abuse screen: Denies threats or abuse. Denies injuries from another. Nutritional screening: No deficits noted. Tuberculosis screening: No symptoms or risk factors identified. Assessment: 12:01 General: Appears in no apparent distress. Behavior is calm, cooperative. Pain: iw Complains of pain in abdomen. Neuro: Level of Consciousness is awake, alert, obeys commands, Oriented to person, place, time, situation, Appropriate for age. Cardiovascular: Respiratory: Respiratory effort is even, unlabored, Respiratory pattern is regular, symmetrical. GI: Abdomen is non-distended. 13:49 Reassessment: Patient and/or family updated on plan of care and expected duration. Pain tl4 level reassessed. Patient is alert, oriented x 3, equal unlabored respirations, skin warm/dry/pink. Pt given casi tez, tolerated well. Pt denies any other needs. Call franklin at bedside, Will continue to monitor. 15:15 Reassessment: Patient and/or family updated on plan of care and expected duration. Pain tl4 level reassessed. Patient is alert, oriented x 3, equal unlabored respirations, skin warm/dry/pink. Patient states feeling better. Vital Signs: 11:14 BP 144 / 85; Pulse 88; Resp 17; Temp 98.7; Pulse Ox 100% on R/A; Weight 82.55 kg; cm10 Height 5 ft. 5 in. ; Pain 8/10; 13:18 BP 140 / 97; Pulse 74; Resp 18; Pulse Ox 100% on R/A; tl4 14:00 BP 138 / 93; Pulse 90; Resp 18; Pulse Ox 100% on R/A; tl4 15:15 BP 121 / 79; Pulse 76; Resp 20; Temp 98.6(O); Pulse Ox 100% on R/A; tl4 11:14 Body Mass Index 30.29 (82.55 kg, 165.1 cm) cm10 11:14 Pain Scale: Adult cm10 ED Course: 10:54 Patient arrived in ED. im 11:00 Hermes Montano PA is PHCP. cp 11:00 Lior Morrow DO is Attending Physician. cp 11:16 Triage completed. cm10 11:16 Arm band placed on right wrist. Patient placed in waiting room. cm10 11:38 Initial lab(s) drawn, by nm, sent to lab. Inserted saline lock: 22 gauge in left iw antecubital area, using aseptic technique. Blood collected. Flushed with 10 mL NS. 12:45 Transvaginal OB In Process Unspecified. EDMS 13:17 Test, Urine Sent. tl4 13:17 Urinalysis w/ reflexes Sent. tl4 13:19 Patient has correct armband on for positive identification. Placed in gown. Bed in low tl4 position. Call light in reach. Side rails up X 1. Provided Education on: call franklin, ed process. Client placed on continuous cardiac and pulse oximetry monitoring. NIBP monitoring applied. Door closed. Noise minimized. Lights dimmed. Moved to private room. Warm blanket given. 13:20 No provider procedures requiring assistance completed. Urine collected: clean catch tl4 specimen. 13:49 Diet: Tolerated well casi tez. tl4 14:22 Nilay Campbell, RN is Primary Nurse. tl4 15:16 IV discontinued, intact, bleeding controlled, No redness/swelling at site. Pressure tl4 dressing applied. Administered Medications: 11:50 Drug: Ondansetron IVP 4 mg IVP once; over 2 minutes Route: IVP; Site: left antecubital; iw 13:18 Follow up: Response: No adverse reaction; Nausea is decreased tl4 11:50 Drug: NS 0.9% IV 1000 ml IV at 1 bolus Per protocol; to be given as a bolus over 60 iw minutes Route: IV; Rate: 1 bolus; Site: left antecubital; 15:17 Follow up: Response: No adverse reaction; IV Status: Completed infusion; IV Intake: tl4 1000ml 14:23 Drug: Promethazine IM 25 mg IM once Route: IM; Site: right ventrogluteal; tl4 15:16 Follow up: Response: No adverse reaction; Nausea is decreased tl4 Medication: 13:19 VIS not applicable for this client. tl4 Intake: 15:17 IV: 1000ml; Total: 1000ml. tl4 Outcome: 14:51 Discharge ordered by MD. cp 15:16 Discharged to home ambulatory, with family, tl4 15:16 Condition: stable 15:16 Discharge instructions given to patient, Instructed on discharge instructions, follow up and referral plans. medication usage, Demonstrated understanding of instructions, follow-up care, medications, Prescriptions given X 2, 15:17 Patient left the ED. tl4 Signatures: Dispatcher [employer] EDPilar Duran RN Hermes Markham PA PA cp Mendoza, Itzel im Martinez, Clarissa, RN RN cm10 Nilay Campbell RN RN tl4
[2023-12-20 15:47] VITALS: O2SAT 100
[2023-12-20 15:50] VITALS: BP 121/79; TEMP 98.6
== END 2023-12-20 15:17 | disposition home or self-care (01) ==
LOC: ER 10:52
DX: O21.9 Vomiting of pregnancy, unspecified (principal); O26.891 Other specified pregnancy related conditions, first trimester; O16.1 Unspecified maternal hypertension, first trimester; Z3A.09 9 weeks gestation of pregnancy
CPT/HCPCS: 85025; 81001; 36415; 83735; 81025; 83690; 80053; 76817; J2550; J2405; J7030; 96361; 96372; 96374; 99284